=== PATIENT | male | born 1935 | race Caucasian/White ===

== ENCOUNTER 2017-11-24 12:19 | Inpatient (IN) | payer OTHER ==
[2017-11-24] MEDS ORDERED: LEVALBUTEROL 1.25 MG/3 ML NEB ONE (12:24)
[2017-11-24] MEDS ORDERED: NA CHLORIDE 0.9% 1,000 ML ONE ×2 (12:49→13:23)
[2017-11-24 13:19] LABS: Arterial Blood Carboxyhemoglob 1.5 % (0-1.5); Blood Gas Oxyhemoglobin 89.8 % (94-97); Blood O2 Saturation 91.7 % (92-98.5)
[2017-11-24 13:22] LABS: Potassium 4.2 mEq/L (3.6-5.0)
[2017-11-24 13:28] LABS: Absolute Lymphocytes (CBC) 0.4 K/uL (0.7-4.9); Absolute Monocytes 0.6 K/uL (0.1-1.3); Absolute Neutrophil 4.7 K/uL (1.8-8.0); Basophils % 0.2 % (0-1.3); Hematocrit 35.7 % (39.6-49.0); Lymphocytes % 6.7 % (15.3-44.8); MCH 26.2 pg (27.0-35.0); MPV 8.3 fL (7.6-11.3); Monocytes % 9.9 % (3.3-12.3); RBC Red Blood Cell Count 4.41 M/uL (4.33-5.43)
--- NOTE | 2017-11-24 13:34 | RAD REPORT ---
EXAM DESCRIPTION: RAD - Chest Single View - 11/24/2017 1:25 pm CLINICAL HISTORY: Cough COMPARISON: 08/03/2017 FINDINGS: Portable technique limits examination quality. Large airspace consolidation is seen in the right lower lobe. Small to moderate area of airspace cons olidation is seen in the right upper lobe. The left lung is hyperexpanded and emphysematous. The hear t is normal in size. No displaced fractures. IMPRESSION: Extensive right-sided pneumonia.
[2017-11-24] MEDS ORDERED: VANCOMYCIN/NS 1 gm 1 GM/250 ML BAG ONE (14:53)
[2017-11-24] MEDS ORDERED: Meropenem 1,000 MG in NA CHLORIDE 0.9% 100 ML IV ONE (15:00)
[2017-11-24] MEDS ORDERED: NOREPINEPHRINE 4mg/D5W 250mL 4 MG/250 ML BAG IV ONE (16:23)
[2017-11-24] MEDS ORDERED: NOREPINEPHRINE 4 MG in D5W 250 ML IV PRN (16:26)
--- NOTE | 2017-11-24 16:27 | EKG ---
Test Date: 2017-11-24 Test Time: 14:59:08 Hot Blaster: SARA MEASUREMENT RESULTS: Intervals: Rate: 102 CO: 160 QRSD: 138 QT: 392 QTc: 510 [place]: P: 69 CO: 160 QRS: -77 T: 36 INTERPRETIVE STATEMENTS: Sinus tachycardia Left axis deviation Right bundle branch block Inferior infarct, age undetermined Abnormal ECG Compared to ECG 08/03/2017 23:51:38 Left-axis deviation now present Atrial abnormality no longer present Myocardial infarct finding still present Electronically Signed On 11-24-17 16:26:52 CDT by Cali Jarvis
--- NOTE | 2017-11-24 16:54 | ER ---
Nurse's Notes [facility] Name: Shaji Gómez Age: 82 yrs Sex: Male : 1935 Arrival Date: 11/24/2017 Time: 12:22 Bed 3 Private MD: Diagnosis: Pneumonia;Hypoxemia;Sepsis;Hypotension Presentation: 11/24 12:20 Presenting complaint: EMS states: pt was at Dr. Holt's office for weakness and iw difficulty breathing, pt was unable to ambulate, was 73% on RA, placed la 6L NC up to 80 %, EMS gave neb, SPO2 up to 86%, also has had cough and congestion X 3 days, was hypotensive at 80/40 on scene. Transition of care: patient was not received from another setting of care. Onset of symptoms was November 24, 2017. Care prior to arrival: Medication(s) given: Albuterol Neb x 1, Atrovent Neb x 1, IV initiated. 18 GA, in the right antecubital area, Glucose check: 120 Med neb given. Oxygen administered. via a nebulizer mask. 12:20 Method Of Arrival: EMS: [facility] iw 12:20 Acuity: JAIR 2 iw Historical: - Allergies: 12:35 perfume; iw - PMHx: 12:35 AAA; Cancer; COPD; CAD; Emphysema; GERD; Myocardial infarction; Pancreatitis; ADD/ADHD; iw - PSHx: 12:35 Aortic stent; Heart stents; iw - Immunization history:: Adult Immunizations unknown. - Family history:: not pertinent. - Social history:: Smoking status: unknown. - Hospitalizations: : No recent hospitalization is reported. Screenin:45 Abuse screen: Denies threats or abuse. Denies injuries from another. Nutritional sg screening: No deficits noted. Tuberculosis screening: No symptoms or risk factors identified. Never had TB. Fall Risk None identified. Assessment: 12:40 Reassessment: ERP notified of BP=68/50, verbal order given for 2nd liter NS bolus, iw started to RAC, pt remains on BiPAP, tolerating well. 12:45 General: Appears in no apparent distress. comfortable, well groomed, well developed, sg well nourished, Behavior is calm, cooperative, appropriate for age. Pain: Denies pain. Neuro: Level of Consciousness is awake, alert, obeys commands, Oriented to person, place, time, Moves all extremities. Speech is normal, Facial symmetry appears normal. Cardiovascular: Heart tones S1 S2 present Capillary refill is brisk in bilateral fingers Patient's skin is warm and dry. Chest pain is denied. Cardiovascular: Rhythm is sinus tachycardia. Respiratory: Airway is patent Respiratory effort is even, labored, shallow, Respiratory pattern is symmetrical, tachypnea. Respiratory: Reports shortness of breath at rest on exertion Breath sounds are diminished in right lower lobe, left posterior lower lobe and right posterior middle lobe the patient has moderate shortness of breath. GI: Abdomen is round non-distended, mass like area noted to abd, pt reports history of AAA and Hernia Bowel sounds present X 4 quads. : No signs and/or symptoms were reported regarding the genitourinary system. EENT: No deficits noted. Derm: Skin is pink, warm \T\ dry. Musculoskeletal: No signs and/or symptoms reported regarding the musculoskeletal system. 13:30 Reassessment: Patient appears in no apparent distress at this time. Patient and/or sg family updated on plan of care and expected duration. Pain level reassessed. Patient is alert, oriented x 3, equal unlabored respirations, skin warm/dry/pink. pt tolerating BiPap well at this time, pt family remains at bedside, pt remains on monitors, srx2, bed in low and locked position, bed remains in trendelenberg d/t hypotension, pt given more warm blankets at this time. 15:50 Reassessment: Patient appears in no apparent distress at this time. Patient and/or sg family updated on plan of care and expected duration. Pain level reassessed. Patient is alert, oriented x 3, equal unlabored respirations, skin warm/dry/pink. time out performed, prior to procedure. 15:55 Reassessment: Sonia ERP BUSINESS ANALYST at bedside for insertion of central line to left femoral. sg 16:51 Reassessment: Patient appears in no apparent distress at this time. Patient is alert, sg oriented x 3, equal unlabored respirations, skin warm/dry/pink. Respiratory: Airway is patent Respiratory effort is even, unlabored, Respiratory pattern is tachypnea Breath sounds are coarse Breath sounds are diminished the patient has mild shortness of breath. Respiratory: Sputum is thick, green purulent. Derm: Skin is pink, warm \T\ dry. 17:17 Reassessment: Patient appears in no apparent distress at this time. pt laying left side sg lying position, eyes closed, resp even and unlabored, pt remains on BiPap at this time, pt awakens easily to verbal stimuli, srx2. 17:30 Reassessment: Patient appears in no apparent distress at this time. Patient and/or sg family updated on plan of care and expected duration. Pain level reassessed. notified of pt VS, and pt status, orders to increase the rate of the norepi to 15 mcg/min Patient states symptoms have not improved. Vital Signs: 12:34 BP 71 / 48; Pulse 111; Resp 26 S; Pulse Ox 93% on BiPAP; Pain 0/10; iw 12:34 Temp 97.4; sg 13:11 BP 84 / 53; Pulse 109; Resp 21 S; Pulse Ox 96% on 40% BiPAP; sg 15:55 BP 73 / 55; Pulse 99 MON; Resp 20 S; Pulse Ox 98% on 75% BiPAP; sg 16:33 BP 104 / 63; Pulse 102 MON; Resp 20 S; Pulse Ox 97% on 75% BiPAP; sg 17:00 BP 83 / 53; Pulse 108; Resp 21 S; Pulse Ox 99% on 75% BiPAP; sg 17:15 BP 91 / 78; Pulse 101 MON; Resp 22 S; Pulse Ox 97% on 75% BiPAP; sg 17:30 BP 85 / 50; Pulse 99; Resp 21 S; Pulse Ox 99% on 75% BiPAP; sg 17:45 BP 101 / 58; Pulse 99 MON; Resp 16 S; Pulse Ox 99% on R/A; sg 18:00 BP 91 / 56; Pulse 99 MON; Resp 19 S; Pulse Ox 100% on 75% BiPAP; sg ED Course: 12:20 Maintain EMS IV. Dressing intact. Good blood return noted. Site clean \T\ dry. Gauge \T\ iw site: 18 RAC. 12:22 Patient arrived in ED. iw 12:23 Sudarshan Peterson MD is Attending Physician. rn 12:34 Triage completed. iw 12:40 Patient has correct armband on for positive identification. Bed in low position. Call sg light in reach. Side rails up X2. chief operating engineer on. Pulse ox on. NIBP on. Warm blanket given. Head of bed elevated. pt bed to Trendelenburg position d/t hypotension. 12:45 Initial lab(s) drawn, by ED staff, sent to lab. First set of blood cultures drawn by sg or. Inserted saline lock: 18 gauge in left forearm, using aseptic technique. Blood collected. O2 via BiPAP. 12:51 Michael Valentine, RN is Primary Nurse. sg 13:24 X-ray completed. Portable x-ray completed in exam room. Patient tolerated procedure mh1 well. 13:26 XRAY CXR (1 view) In Process Unspecified. EDMS 15:19 EKG done, by renewable energy technician. reviewed by Sudarshan Peterson MD. at1 15:50 Assisted provider with central line placement. Set up central line tray. Triple lumen sg line placed in left femoral. Line placed by Yohana SHELTON-Raj Placement verified by blood return, Dressed with Tegaderm, Blood was collected. Patient tolerated well. Before procedure, did Practitioner(s) obtain informed consent? Yes. Patient \T\ family education about procedure, CLABSI prevention and S/S of infection? Yes. Time-out/Briefing performed prior to start of procedure? Yes. Was handwashing/sanitizing done immediately prior to procedure? Yes. Was patient positioned to in a way to prevent air embolism? Yes. Was procedure site sterilized? Yes, with Provodone Iodine, physician discretion. Was the site allowed to dry? Yes. Was local anesthetic and/or sedation utilized? Yes. During the procedure, did the Practitioner(s) maintain a sterile field? Yes. Were unused ports clamped during insertion? Yes. Was a 2nd qualified MD obtained after 3 unsuccessful insertion attempts? No. Was blood aspirated from each lumen? Yes. After the procedure, did the Practitioner(s) clean the site and apply a sterile dressing? Yes. 16:30 Notified ED physician of a critical lab result(s). lactate 41.5. dm5 16:53 Leatha Holt MD is Hospitalizing Provider. rn 18:12 Patient admitted, IV remains in place. intact, No redness/swelling at site. sg 18:13 One-on-one care X 180 minutes. sg Administered Medications: 12:36 Drug: NS 0.9% 1000 ml Route: IV; Rate: 1000 ml; Site: right antecubital; iw 13:30 Follow up: Response: No adverse reaction; IV Status: Completed infusion; IV Intake: sg 990ml 12:45 Drug: Xopenex (3) 1.25 mg Route: Inhalation; sg 12:45 Drug: AtroVENT Aerosol 0.5 mg Route: Inhalation; sg 12:54 Drug: NS 0.9% 1000 ml Route: IV; Rate: 1000 ml; Site: right antecubital; iw 13:30 Follow up: Response: No adverse reaction; IV Status: Completed infusion sg 14:50 CANCELLED (Duplicate Order): Rocephin - (cefTRIAXone) 1 grams IVPB once over 30 mins; rn (mix in 50 mL NS) 14:50 CANCELLED (Duplicate Order): AZITHromycin 500 mg IVPB once over 1 hrs; (mix in 250 mL rn NS) 14:53 Drug: NS 0.9% 500 ml Route: IV; Rate: bolus; Site: left antecubital; sv 15:30 Follow up: Response: No adverse reaction; IV Status: Completed infusion; IV Intake: sg 500ml 15:00 Drug: vancoMYCIN 1 grams Route: IVPB; Infused Over: 2 hrs; Site: right antecubital; iw 16:56 Follow up: Response: No adverse reaction; IV Status: Completed infusion sg 15:19 Drug: Meropenem 1 grams Route: IV; Rate: 1 calculated rate; Site: left wrist; sv 15:30 Follow up: Response: No adverse reaction; IV Status: Completed infusion sg 16:30 Drug: Levophed (4 mg/250 mL D5W 4 mcg/min {Note: bp74/53.} Route: IV; Rate: calculated sg rate; Site: left femoral; 17:03 Follow up: Rate change 10 mcg/min sg 17:30 Follow up: Rate change 15 mcg/min sg 18:24 Follow up: Response: No adverse reaction; IV Status: Infusion continued upon admission sg 18:24 Not Given (Physician Discretion): Magnesium Sulfate 1 grams IVPB once over 1 hrs sg Intake: 13:30 IV: 990ml; Total: 990ml. sg 15:30 IV: 500ml; Total: 1490ml. sg Outcome: 16:53 Decision to Hospitalize by Provider. rn 18:25 Admitted to ICU accompanied by nurse, accompanied by tech, family with patient, via sg stretcher, room 1, with oxygen, on monitor, with chart. 18:25 Condition: stable 18:25 Instructed on the need for admit, safety practices, Demonstrated understanding of instructions. 18:42 Patient left the ED. iw Signatures: Dispatcher [employer] Chela Tabor, RN RN dm5 Lillian Mijares RN Michael Philip RN RN sg Harvey, Martha 1 Mary Lockhart RN RN iw Nieto, Roman, MD MD rn gonzales, Amanda, egg worker EKG Tat1
--- NOTE | 2017-11-24 16:54 | EDPHYS ---
Physician Documentation [facility] Name: Shaji Gómez Age: 82 yrs Sex: Male : 1935 Arrival Date: 11/24/2017 Time: 12:22 Bed 3 Private MD: ED Physician Sudarshan Peterson HPI: 11/24 16:49 This 82 yrs old Male presents to ER via EMS with complaints of Breathing rn Difficulty. 16:49 The patient has shortness of breath at rest, with light activity. Onset: The rn symptoms/episode began/occurred 1 week(s) ago. Duration: The symptoms are continuous. Severity of symptoms: At their worst the symptoms were severe in the emergency department the symptoms have improved. The patient has experienced similar episodes in the past. Sent by PCP for sob and low O2 sats, + hx of copd and recurrent pneumonia, O2 sats in 70s. Given solumedrol and breathing treatments by EMS prior to arrival.. Historical: - Allergies: 12:35 perfume; iw - PMHx: 12:35 AAA; Cancer; COPD; CAD; Emphysema; GERD; Myocardial infarction; Pancreatitis; ADD/ADHD; iw - PSHx: 12:35 Aortic stent; Heart stents; iw - Immunization history:: Adult Immunizations unknown. - Family history:: not pertinent. - Social history:: Smoking status: unknown. - Hospitalizations: : No recent hospitalization is reported. ROS: 16:49 Constitutional: Negative for fever, chills, and weight loss, Eyes: Negative for injury, rn pain, redness, and discharge, Neck: Negative for injury, pain, and swelling, Cardiovascular: Negative for chest pain, palpitations, and edema, Respiratory: + sob and cough Abdomen/GI: Negative for abdominal pain, nausea, vomiting, diarrhea, and constipation, Back: Negative for injury and pain, MS/Extremity: Negative for injury and deformity, Skin: Negative for injury, rash, and discoloration, Neuro: + weakness Exam: 16:49 Constitutional: This is a well developed, well nourished patient who is awake, alert, rn + moderate respiratory distress on facemask Head/Face: Normocephalic, atraumatic. Eyes: Pupils equal round and reactive to light, extra-ocular motions intact. Lids and lashes normal. Conjunctiva and sclera are non-icteric and not injected. Cornea within normal limits. Periorbital areas with no swelling, redness, or edema. ENT: dry MM Neck: Trachea midline, no thyromegaly or masses palpated, and no cervical lymphadenopathy. Supple, full range of motion without nuchal rigidity, or vertebral point tenderness. No Meningismus. Cardiovascular: tachycardic, regular, no murmur Respiratory: + moderate tachypnea with retractions, + coarse bilateral breath sounds, more diminished on right base. Abdomen/GI: Soft, non-tender, with normal bowel sounds. No distension or tympany. No guarding or rebound. No evidence of tenderness throughout. MS/ Extremity: Pulses equal, no cyanosis. Neurovascular intact. Full, normal range of motion. Equal circumference. Neuro: Awake and alert, GCS 15, oriented to person, place, time, and situation. Cranial nerves II-XII grossly intact. Motor strength 5/5 in all extremities. Sensory grossly intact. Cerebellar exam normal. Vital Signs: 12:34 BP 71 / 48; Pulse 111; Resp 26 S; Pulse Ox 93% on BiPAP; Pain 0/10; iw 12:34 Temp 97.4; sg 13:11 BP 84 / 53; Pulse 109; Resp 21 S; Pulse Ox 96% on 40% BiPAP; sg 15:55 BP 73 / 55; Pulse 99 MON; Resp 20 S; Pulse Ox 98% on 75% BiPAP; sg 16:33 BP 104 / 63; Pulse 102 MON; Resp 20 S; Pulse Ox 97% on 75% BiPAP; sg 17:00 BP 83 / 53; Pulse 108; Resp 21 S; Pulse Ox 99% on 75% BiPAP; sg 17:15 BP 91 / 78; Pulse 101 MON; Resp 22 S; Pulse Ox 97% on 75% BiPAP; sg 17:30 BP 85 / 50; Pulse 99; Resp 21 S; Pulse Ox 99% on 75% BiPAP; sg 17:45 BP 101 / 58; Pulse 99 MON; Resp 16 S; Pulse Ox 99% on R/A; sg 18:00 BP 91 / 56; Pulse 99 MON; Resp 19 S; Pulse Ox 100% on 75% BiPAP; sg Procedures: 16:21 Central Line: the site was prepped with in sterile fashion, a triple lumen catheter was snw inserted, in the left femoral vein, in 1 attempts. placement was verified, by blood return, the site was dressed with Tegaderm, the patient tolerated the procedure, well. MDM: 12:23 Patient medically screened. rn 16:49 Differential diagnosis: Chronic Obstructive Pulmonary Disease Myocardial Infarction rn pneumonia, Pneumothorax. Data reviewed: vital signs, nurses notes, lab test result(s), EKG, radiologic studies, plain films, and as a result, I will admit patient. Counseling: I had a detailed discussion with the patient and/or guardian regarding: the historical points, exam findings, and any diagnostic results supporting the discharge/admit diagnosis, lab results, radiology results, the need for further work-up and treatment in the hospital. Response to treatment: the patient's symptoms have mildly improved after treatment, and as a result, I will admit patient. Admission orders: after a detailed discussion of the patient's condition and case, the admit orders are written by me. ED course: Pt improved after abx, central line, and pressor, notified Dr. Holt of admission, requests meropenem and vancomycin, will admit to ICU.. 11/24 12:25 Order name: Blood Culture Adult (2) 11/24 12:25 Order name: BNP; Complete Time: 14:39 11/24 12:34 Order name: ABG; Complete Time: 14:39 11/24 12:57 Order name: Basic Metabolic Panel; Complete Time: 14:39 [facility] 11/24 12:57 Order name: Troponin (Emerg Dept Use Only); Complete Time: 14:39 [facility] 11/24 12:57 Order name: Procalcitonin; Complete Time: 16:17 [facility] 11/24 12:57 Order name: CBC with Automated Diff; Complete Time: 14:39 [facility] 11/24 13:01 Order name: Lactate; Complete Time: 14:39 11/24 16:30 Order name: Lactate Sepsis 2 HR Follow-up [facility] 11/24 12:25 Order name: XRAY CXR (1 view); Complete Time: 14:39 11/24 12:25 Order name: EKG; Complete Time: 13:01 11/24 12:25 Order name: BIPAP 11/24 16:51 Order name: Sputum Culture 11/24 18:21 Order name: Sputum Culture [facility] 11/24 12:25 Order name: Cardiac monitoring; Complete Time: 12:54 rn 11/24 12:25 Order name: EKG - Nurse/Tech; Complete Time: 15:21 rn 11/24 12:25 Order name: IV Saline Lock; Complete Time: 12:55 rn 11/24 12:25 Order name: Labs collected and sent; Complete Time: 12:55 rn 11/24 12:25 Order name: O2 Per Protocol; Complete Time: 12:55 rn 11/24 12:25 Order name: O2 Sat Monitoring; Complete Time: 12:55 rn Administered Medications: 12:36 Drug: NS 0.9% 1000 ml Route: IV; Rate: 1000 ml; Site: right antecubital; iw 13:30 Follow up: Response: No adverse reaction; IV Status: Completed infusion; IV Intake: sg 990ml 12:45 Drug: Xopenex (3) 1.25 mg Route: Inhalation; sg 12:45 Drug: AtroVENT Aerosol 0.5 mg Route: Inhalation; sg 12:54 Drug: NS 0.9% 1000 ml Route: IV; Rate: 1000 ml; Site: right antecubital; iw 13:30 Follow up: Response: No adverse reaction; IV Status: Completed infusion sg 14:50 CANCELLED (Duplicate Order): Rocephin - (cefTRIAXone) 1 grams IVPB once over 30 mins; rn (mix in 50 mL NS) 14:50 CANCELLED (Duplicate Order): AZITHromycin 500 mg IVPB once over 1 hrs; (mix in 250 mL rn NS) 14:53 Drug: NS 0.9% 500 ml Route: IV; Rate: bolus; Site: left antecubital; sv 15:30 Follow up: Response: No adverse reaction; IV Status: Completed infusion; IV Intake: sg 500ml 15:00 Drug: vancoMYCIN 1 grams Route: IVPB; Infused Over: 2 hrs; Site: right antecubital; iw 16:56 Follow up: Response: No adverse reaction; IV Status: Completed infusion sg 15:19 Drug: Meropenem 1 grams Route: IV; Rate: 1 calculated rate; Site: left wrist; sv 15:30 Follow up: Response: No adverse reaction; IV Status: Completed infusion sg 16:30 Drug: Levophed (4 mg/250 mL D5W 4 mcg/min {Note: bp74/53.} Route: IV; Rate: calculated sg rate; Site: left femoral; 17:03 Follow up: Rate change 10 mcg/min sg 17:30 Follow up: Rate change 15 mcg/min sg 18:24 Follow up: Response: No adverse reaction; IV Status: Infusion continued upon admission sg 18:24 Not Given (Physician Discretion): Magnesium Sulfate 1 grams IVPB once over 1 hrs sg Disposition: 16:53 Critical Care:. rn 21:49 Co-signature as Attending Physician, Sudarshan Peterson MD. rn Disposition: 18 16:53 Hospitalization ordered by Leatha Holt for Inpatient Admission. Preliminary diagnosis are Pneumonia, Hypoxemia, Sepsis, Hypotension. - Bed requested for Intensive Care Unit. - Status is Inpatient Admission. iw - Condition is Fair. - Problem is new. - Symptoms have improved. UTI on Admission? No Critical care time excluding procedures: 16:53 Critical care time: Bedside Care: 25 minutes, Consultation: 5 minutes, Family rn Intervention: 5 minutes. Total time: 35 minutes Signatures: Dispatcher [employer] EDMS Maria De Jesus Murillo Stephanie, RN RN sv Gay, Steven, RN RN sg Yohana Padgett, ELEVATOR CONSTRUCTOR HELPER-C ELEVATOR CONSTRUCTOR HELPER-Csnw Mary Lockhart RN RN iw Nieto, Roman, MD MD corn lab technician: (The following items were deleted from the chart) 14:19 12:57 BNP B-Type Natriuretic Peptide ordered. EDMS EDMS 14:19 13:01 BASIC METABOLIC PANEL+C.LAB.BRZ ordered. EDMS EDMS 14:19 13:01 TROPONIN (EMERG DEPT USE ONLY)+C.LAB.BRZ ordered. EDMS EDMS 14:50 14:40 Rocephin - (cefTRIAXone) 1 grams IVPB once over 30 mins; (mix in 50 mL NS) rn ordered. rn 14:50 14:40 AZITHromycin 500 mg IVPB once over 1 hrs; (mix in 250 mL NS) ordered. rn rn 16:28 13:01 Procalcitonin+C.LAB.BRZ ordered. EDMS EDMS 16:38 13:01 CBC+H.LAB.BRZ ordered. EDMS EDMS
[2017-11-24] MEDS ORDERED: ONDANSETRON 4 MG/2 ML VIAL IV PRN (18:19)
[2017-11-24] MEDS ORDERED: IPRATROPIUM BROM 0.5MG/2.5ML NEB PRN (18:19)
[2017-11-24] MEDS ORDERED: ENOXAPARIN 30 MG/0.3 ML SQ ONE (21:51)
[2017-11-24] MEDS ORDERED: FUROSEMIDE 40 MG/4 ML VIAL IV ONE (22:34)
[2017-11-24] MEDS: NOREPINEPHRINE 4 MG in D5W 250 ML IV PRN (22:54)
[2017-11-24] MEDS: METHYLPREDNISOLONE 125 MG INJ IV SCH (22:55)
[2017-11-25] MEDS ORDERED: Meropenem 1000 MG/VIAL IV SCH (04:00)
[2017-11-25 06:25] LABS: Absolute Lymphocytes (CBC) 0.2 K/uL (0.7-4.9); Absolute Monocytes 0.7 K/uL (0.1-1.3); Absolute Neutrophil 12.7 K/uL (1.8-8.0); Basophils % 0.1 % (0-1.3); Hematocrit 35.1 % (39.6-49.0); Lymphocytes % 1.8 % (15.3-44.8); MCH 26.4 pg (27.0-35.0); MPV 8.2 fL (7.6-11.3); Monocytes % 5.1 % (3.3-12.3); RBC Red Blood Cell Count 4.34 M/uL (4.33-5.43)
[2017-11-25] MEDS: NOREPINEPHRINE 4 MG in D5W 250 ML IV PRN ×2 (06:39→20:33)
[2017-11-25] MEDS: METHYLPREDNISOLONE 125 MG INJ IV SCH ×3 (06:44→17:17)
[2017-11-25 06:45] LABS: Potassium 5.7 mEq/L (3.6-5.0)
[2017-11-25] MEDS ORDERED: NA CHLORIDE 0.9% 250 ML IV ONE (07:17)
[2017-11-25] MEDS ORDERED: Meropenem 1,000 MG in NA CHLORIDE 0.9% 100 ML IV SCH (07:30)
[2017-11-25 07:39] LABS: Potassium 5.9 mEq/L (3.6-5.0)
[2017-11-25] MEDS ORDERED: SOD POLYSTYREN SUL 15 GM/60 ML UCUP PO ONE (07:58)
[2017-11-25] MEDS ORDERED: CALCIUM GLUC 10% INJ 4.65 MEQ in NA CHLORIDE 0.9% 100 ML IV ONE (08:01)
[2017-11-25] MEDS ORDERED: GLUCAGON 1 MG/VIAL IM PRN (08:05)
[2017-11-25] MEDS ORDERED: D50W 25 GM/50 ML SYRINGE IV ONE (08:05)
[2017-11-25] MEDS ORDERED: D50W 25 GM/50 ML SYRINGE IV PRN (08:05)
[2017-11-25] MEDS ORDERED: INSULIN -REGULAR HUMAN 50 UNIT/0.5 ML ML IV ONE (08:06)
[2017-11-25] MEDS: NA CHLORIDE 0.9% 1,000 ML IV SCH ×2 (08:11→21:20)
--- NOTE | 2017-11-25 08:22 | HP ---
Date of Admission: 11/24/2017 Chief Complaint: Shortness of breath, fever, confusion. History Of Present Illness: This is an 82-year-old male patient with history of lung cancer, COPD, came into office with above-mentioned complaints. The patient's called this morning around 8 o'clock at the office and she was concerned about the patient not doing well and she was advised to bring patient to the office right away. The patient did not come to office until almost 11 o' clock and soon after he came into the office, he was evaluated. He actually was extremely weak that he was in the wheelchair he had hard time coming out of the car to come in the office, so he was brought in by and office staff in wheelchair and as soon as he came in, we evaluated. His oxygen saturation was 73%-76% on 5 L oxygen and he appeared very weak and confused. reported that last 3 to 4 days, he is having increasing problem with cough, congestion, some shortness of breath, wheezing and today he was noted to be confused with some fever. He is coughing up some colored mucus, yellowish colored in nature. After he was evaluated, we immediately decided to call ambulance and 911 was called. EMS arrived and the patient was transported to the emergency room. After his evaluation in the emergency room, he was admitted to the hospital to intensive care unit. He has received about 2 to 2.5 L of fluid in the emergency room and BiPAP therapy, oxygen nebulizer treatment, steroids, and antibiotics were started. Allergies: NO KNOWN ALLERGIES. Medications: According to office list, he takes Advair 250/50 one puff twice a day, aspirin 325 mg daily, Flomax 0.4 mg daily, gabapentin 100 mg 3 times a day , meloxicam 7.5 mg daily, omeprazole 20 mg daily, ProAir inhaler p.r.n., Spiriva inhaler 1 puff daily, tramadol p.r.n., Tylenol p.r.n. Review of Systems: Constitutional: As mentioned above. 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 Respiratory: As mentioned above. All other systems reviewed and negative. Past Surgical History: Significant for coronary artery angioplasty with stent placement, endovascular stent for abdominal aortic aneurysm in 2002, and surgery for prostate. Family History: Mother had stroke. Social History: Prior history of smoking, not at present time. Use of alcohol negative. Past Medical History: Significant for abdominal aortic aneurysm, lung cancer, gastroesophageal reflux disease, mixed hyperlipidemia, hypertension, benign prostatic hypertrophy, COPD, diverticulosis, coronary artery disease. Physical Examination: Vital Signs: At office, blood pressure 85/52, pulse 120, respiratory rate 18, temperature 97.9, oxygen saturation 73%. General: The patient appears very weak, confused, not in any distress. HEENT: Head atraumatic, normocephalic. Conjunctivae nonerythematous. Sclerae white. Mouth, no thrush or edema noted. Ears/Nose, no mass, lesion, discharge noted. Neck: Supple. No JVD, lymph nodes, bruit, thyromegaly noted. Lungs: Bilateral diminished air entry in both lung burris, shallow breathing. Heart: Normal heart sounds, no murmur or gallop. Abdomen: Soft, bowel sounds normal. No guarding, rigidity, tenderness, mass, hepatosplenomegaly, distention, or bruit noted. Extremities: No leg edema. No calf tenderness. Skin: No rash, ulcer, cellulitis. Lymphatics: No lymph node enlargement in neck, supraclavicular, infraclavicular region. Neuro: The patient appears very weak and confused, generalized weakness. Chest: Unremarkable. External Genitalia: Deferred. Rectal: Deferred. Laboratory Data: White count 5.6, hemoglobin 11.5, platelets 241. Blood gas; pH 7.24, pCO2 50.6, pO2 75.4, saturation 91% on 100% FiO2. Sodium 137, potassium 4.2, chloride 105, bicarb 23, BUN 30, creatinine 2.20, glucose 106. BNP 249. The patient's last creatinine on August 05, 2017 was 1.00. Troponin 0.08. Chest x-ray; extensive right-sided pneumonia. Impression: 1. Acute respiratory failure. 2. Pneumonia. 3. Acute kidney injury. 4. Volume depletion. 5. Anemia. 6. Lung cancer. 7. Acute exacerbation of chronic obstructive pulmonary disease. 8. Abdominal aortic aneurysm. 9. Hypertension. 10. Mixed hyperlipidemia. 11. Diverticulosis. 12. Coronary artery disease. 13. Gastroesophageal reflux disease. 14. Rule out sepsis. Plan: Admit the patient to hospital for further evaluation and management of this problem. The patient is appropriate for inpatient and is expected to spend 2 midnights in the hospital. He will be admitted to intensive care unit. IV fluid, about 2.5 L of IV fluid was given in the emergency room. We will continue IV fluid. Vasopressor medication was started, we will continue that. DVT prophylaxis will be given using Lovenox. We will start him on vancomycin and meropenem. Oxygen nebulizer treatment will be given. GI prophylaxis will be given per order. I will see him tomorrow for followup. Overall, prognosis is guarded. I did talk to patient and his today at office before they left to go to the emergency room about advance directive, and per my discussion with them, the patient remains full code. LORI/MODL Voice ID: [id number]
[2017-11-25] MEDS ORDERED: Meropenem 500 MG VIAL IV SCH (09:00)
[2017-11-25] MEDS ORDERED: THIAMINE 200 MG/2 ML INJ IVP ONE (09:04)
[2017-11-25] MEDS ORDERED: RSI MEDICATION KIT IV ONE (09:15)
[2017-11-25] MEDS: NA CHLORIDE 0.9% 250 ML IV PRN ×8 (09:20→16:00)
[2017-11-25] MEDS ORDERED: PROPOFOL 1,000 MG/100 ML VIAL IV ONE (09:28)
[2017-11-25 09:58] LABS: Arterial Blood Carboxyhemoglob 1.2 % (0-1.5); Blood Gas Oxyhemoglobin 90.8 % (94-97); Blood O2 Saturation 93.6 % (92-98.5)
[2017-11-25] MEDS ORDERED: HALOPERIDOL LACT 5 MG/ML INJ IV PRN (10:06)
[2017-11-25] MEDS: LORazepam 2 MG/ML VIAL IV PRN ×2 (10:20→15:20)
--- NOTE | 2017-11-25 10:27 | RAD REPORT ---
EXAM DESCRIPTION: RAD - Chest Single View - 11/25/2017 10:11 am CLINICAL HISTORY: Intubation, respiratory distress COMPARISON: November 24 TECHNIQUE: AP portable chest image was obtained 1001 hour . FINDINGS: Endotracheal tube has been placed. Tip is not optimally visualized due to motion. This bridger ears be 1 centimeter above the aylin. Right hemithorax volume reduction is noted. There is extensive opacification in the right upper lobe and in the right lung base. Density of opacification has incre ased. Hyper expanded left hemithorax shows no new or progressive finding. Heart size is upper normal. Right heart border is obscured. No pneumothorax. No gross bony abnormality seen. No acute aortic fin dings suspected. IMPRESSION: Endotracheal tube placement with the tip 1 centimeter above the aylin. Worsening opacification in volume reduction of the right hemithorax.
[2017-11-25 10:28] LABS: Protime INR 1.61
[2017-11-25 11:34] LABS: Albumin 2.8 g/dL (3.2-5.5); Bilirubin Total 0.9 mg/dL (0.3-1.2); Potassium 5.2 mEq/L (3.6-5.0); Protein, Total 6.1 g/dL (6.0-8.3)
[2017-11-25] MEDS: MIDAZOLAM HCL 2 MG/2 ML INJ IV PRN ×3 (11:45→19:54)
[2017-11-25] MEDS: HEPARIN/D5W 25,000 UNIT/500 ML BAG IV PRN (11:51)
[2017-11-25] MEDS: VANCOMYCIN 1.5 GM in NA CHLORIDE 0.9% 500 ML IV SCH ×2 (13:21→14:37)
[2017-11-25] MEDS ORDERED: SUCCINYLCHOLINE 20 MG/ML (10 ML) IV ONE (13:27)
[2017-11-25] MEDS ORDERED: VECURONIUM 10 MG/VIAL IV ONE (13:27)
[2017-11-25] MEDS ORDERED: WATER FOR INJ,STERILE 10 ML IV ONE (13:27)
[2017-11-25] MEDS: FENTANYL CITR 100 MCG/2 ML IV PRN (13:50)
[2017-11-25 14:53] LABS: Arterial Blood Carboxyhemoglob 1.1 % (0-1.5); Blood Gas Oxyhemoglobin 86.3 % (94-97); Blood O2 Saturation 88.8 % (92-98.5)
--- NOTE | 2017-11-25 15:00 | RAD REPORT ---
EXAM DESCRIPTION: US - Chest - 11/25/2017 1:57 pm CLINICAL HISTORY: Abnormal chest film, possible loculated or free pleural effusion COMPARISON: Portable chest November 25 FINDINGS: Sonographic evaluation of the posterior right chest was performed from apex to lung base. In the upper half of the chest posterolateral margin there is a 4.8 centimeter elliptically shaped lo culated fluid collection. No other definable fluid collections seen on this examination. IMPRESSION: Right chest sonography demonstrated a 4.8 centimeter elliptically shaped fluid collectio n posterolateral upper right chest. No other definable fluid collection.
--- NOTE | 2017-11-25 16:50 | P.CNS ---
Date of Consult: 11/25/17 Chief Complaint: Shock respiratory failure pleural effusion History of Present Illness: Patient is 82 years of age admitted with hypoxemia this morning when I came to round on a me was agitated on a BiPAP very hypoxic he was then intubated patient was hypotensive is currently on a Levophed drip has been weaned down to 6 mcg receiving IV fluid boluses on broad-spectrum antibiotics was also started on a heparin in addition is chest x-ray shows a significant worsening with an effusion on the right side ultrasound of the chest possible loculation he has had surgery before on the right side for lung cancer Allergies perfume Allergy (Verified 08/04/17 04:30) Unknown Home Medications: Aspirin [Low Dose Aspirin EC] 81 mg PO DAILY 11/28/13 Tramadol HCl [Ultram] 50 mg PO Q4HP PRN 11/28/13 Albuterol Sulfate [Proair Hfa] 2 puff IH Q4HP PRN 07/18/15 Fluticasone/Vilanterol [Breo Ellipta 100-25 Mcg INH] 1 puff IH DAILY 10/29/15 Gabapentin [Neurontin*] 300 mg PO DAILY 10/29/15 Fluticasone/Salmeterol [Advair 250/50 Diskus*] 1 puff IH BID 03/05/17 Omeprazole 20 mg PO DAILY 03/05/17 Levofloxacin [Levaquin] 500 mg PO DAILY #7 tab 08/06/17 Prednisone [Deltasone*] 10 mg PO SEECOM #14 tab 08/06/17 - Past Medical/Surgical History Diabetic: No -: Lung Cancer 2006 -: Macular Degeneration -: copd -: gerd -: [place] -: hx of AAA stent 15 years ago -: Pt does not remember last colonoscopy date. -: heart stent -: Aorta stent - Family History Mother Medical History: Stroke Father Notes: etoh abuse - Social History Smoking Status: Unknown if ever smoked Alcohol use: No CD- Drugs: No Caffeine use: Yes Place of Residence: Home Review of Systems is unable to be obtained Physical Examination Temp Pulse Resp BP Pulse Ox 98.0 F 160 H 19 101/60 92 11/25/17 04:00 11/25/17 14:30 11/25/17 14:30 11/25/17 14:30 11/25/17 14:30 General: Other (Patient on a ventilator) Neck: Supple Respiratory: Diminished (Diminished air entry on the right side with some crackles), Crackles/rales Cardiovascular: No edema, Normal S1 S2 Gastrointestinal: Normal bowel sounds, Soft and benign - Problems (1) Shock Current Visit: Yes Status: Acute Plan: Patient is currently in shock is on Levophed drip getting IV fluid boluses on broad-spectrum antibiotic potential diagnosis includes thromboembolism he is at high risk of started him on IV heparin chest x-ray shows significant opacification on the right side ultrasound possible loculation I have arranged for him to have a CT scan done of the chest patient's renal function has significantly worsened since July last year labs reviewed if patient has a loculated effusion then will refer him to thoracic surgery patient has been on stable since this morning to have a CT scan done due to her arrhythmia and hypotension he is more stable now also have difficulty inserting the top off patient is not tolerate PEEP is currently on vancomycin and meropenem also ordered an echocardiogram Critical Care: Yes Time Spent Managing Pts care (In Minutes): 60
[2017-11-25] MEDS: HEPARIN 10,000 UNIT/10 ML VIAL IV PRN ×2 (16:53→22:21)
[2017-11-25] MEDS ORDERED: ENOXAPARIN 30 MG/0.3 ML SQ SCH (17:00)
[2017-11-25] MEDS: IPRATROPIUM BROM 0.5MG/2.5ML NEB SCH (19:14)
[2017-11-25] MEDS: Meropenem 500 MG in NA CHLORIDE 0.9% 100 ML IV SCH (20:33)
--- NOTE | 2017-11-25 22:11 | EKG ---
Test Date: 2017-11-25 Test Time: 13:35:07 Formulator Compounder: SARA MEASUREMENT RESULTS: Intervals: Rate: 160 NE: 120 QRSD: 128 QT: 300 QTc: 489 [place]: P: NE: 120 QRS: 268 T: 59 INTERPRETIVE STATEMENTS: Sinus tachycardia Right bundle branch block Possible Lateral infarct, age undetermined Inferior infarct, age undetermined Abnormal ECG Compared to ECG 11/24/2017 14:59:08 Left-axis deviation no longer present Myocardial infarct finding still present Electronically Signed On 11-25-17 22:10:35 CDT by Cali Jarvis
[2017-11-26] MEDS: METHYLPREDNISOLONE 125 MG INJ IV SCH ×2 (00:50→05:32)
[2017-11-26] MEDS: HEPARIN/D5W 25,000 UNIT/500 ML BAG IV PRN (00:51)
--- NOTE | 2017-11-26 00:52 | PN ---
Date of Progress Note: 11/25/2017 Subjective: The patient was seen this morning for followup. He was lying in bed in ICU on BiPAP. O verall, he looks better today than yesterday. Denied any new complaints. This morning, when I saw h im, he was on Levophed drip at 6 mcg dose and his systolic blood pressure was 98, heart rate was arou nd 120, sinus tachycardia. Objective: Vital Signs: Reviewed. HEENT: Unremarkable. Lungs: Bilateral good equal entry. Presence of some rales in the right lung burris. Heart: Sounds normal. Abdomen: Soft. Bowel sounds normal. No guarding, rigidity, tenderness, or distention. Extremities: No leg edema. Laboratory Data: White count 13.6, hemoglobin 11.4, platelets 295. Initial sodium this morning 136, potassium 5.7, BUN 39, creatinine 2.84, bicarb 20, glucose 113. Repeat Chem-7, 134, potassium 5.9, chloride 104, bicarb 21, BUN 40, creatinine 3.04, glucose 114. Impression: 1.Pneumonia. 2.Acute respiratory failure. 3.Acute exacerbation of chronic obstructive pulmonary disease. 4.Hyperkalemia. 5.Acute kidney injury. 6.Sepsis. Plan: We will continue meropenem and vancomycin and meropenem dose was adjusted according to impaire d renal function. IV fluid bolus 250 cc was ordered this morning when I saw him. We will continue o xygen nebulizer treatment, IV Protonix. IV Solu-Medrol will be continued. We will also continue DVT prophylaxis with Lovenox. After I saw him, Dr. Oates saw him from Pulmonary and at that time, e patient's respiratory status was deteriorating and he recommended intubation. The patient is full code as per my discussion with the patient's yesterday at the office, so Dr. Oates did intuba te him and the patient was placed on ventilator. This afternoon, he had episode of supraventricular tachycardia with heart rate around 160. Hemodynamically, he was stable and subsequently he was back in sinus rhythm. His repeat potassium was 5.3 this afternoon and this was after I gave him D50 IV wi th 10 units of regular insulin IV this morning and calcium gluconate and Kayexalate for treatment of hyperkalemia. Overall, prognosis is guarded. I will see him tomorrow for followup. LORI/MODL Voice ID: [id number] Report ID: [id number]
[2017-11-26] MEDS: ALBUTEROL 2.5 MG/3 ML NEB SOL NEB PRN ×2 (01:57→19:50)
[2017-11-26] MEDS: IPRATROPIUM BROM 0.5MG/2.5ML NEB SCH ×4 (01:57→19:50)
[2017-11-26] MEDS: NA CHLORIDE 0.9% 1,000 ML IV SCH ×3 (02:17→15:30)
[2017-11-26] MEDS: FENTANYL CITR 100 MCG/2 ML IV PRN (05:33)
[2017-11-26 07:07] LABS: Albumin 2.6 g/dL (3.2-5.5); Bilirubin Total 0.8 mg/dL (0.3-1.2); Potassium 4.9 mEq/L (3.6-5.0); Protein, Total 6.2 g/dL (6.0-8.3)
[2017-11-26 07:09] LABS: Hematocrit 30.8 % (39.6-49.0); MCH 26.3 pg (27.0-35.0); MCV 81.2 fL (80-100); MPV 8.3 fL (7.6-11.3); RBC Red Blood Cell Count 3.79 M/uL (4.33-5.43)
[2017-11-26] MEDS: HEPARIN 10,000 UNIT/10 ML VIAL IV PRN (07:30)
--- NOTE | 2017-11-26 08:26 | P.PN ---
Subjective Date of Service: 11/26/17 Chief Complaint: Shock respiratory failure pleural effusion Subjective: Improving (Patient is off vasopressors is on IV propofol no the change) Review of Systems is unable to be obtained Physical Examination - Vital Signs Temperature: 97.8 F Blood Pressure: 88/53 Pulse: 101 Respirations: 16 Pulse Ox (%): 95 - Physical Exam General: Unresponsive Respiratory: Clear to auscultation bilaterally, Diminished (Diminished on the right side with some crackles) Cardiovascular: No edema, Regular rate/rhythm, Normal S1 S2 Gastrointestinal: Normal bowel sounds, Soft and benign Assessment & Plan - Problems (Diagnosis) (1) Shock Current Visit: Yes Status: Acute Plan: Patient shock has resolved his off vasopressors blood cultures so far negative sputum cultures pending I have ordered an echocardiogram CT chest pending naval to give contrast due to his renal insufficiency renal function is improving continue with heparin for now chest x-ray shows opacification on the right side with volume loss and presumably secondary to his resection from his lung cancer ultrasound preliminary report showed a loculated effusion then done in the CT scan if this loculated consider transfer to a tertiary care facility patient is full code start on tube feeds patient is mildly anemic
[2017-11-26] MEDS: FAMOTIDINE 20 MG/2 ML VIAL IV SCH (09:01)
[2017-11-26] MEDS: Meropenem 500 MG in NA CHLORIDE 0.9% 100 ML IV SCH ×2 (09:01→21:00)
--- NOTE | 2017-11-26 09:02 | RAD REPORT ---
EXAM DESCRIPTION: Nick Single View11/26/2017 6:05 am CLINICAL HISTORY: Shortness of breath COMPARISON: November 25 FINDINGS: Mild improvement in the right lung opacities has occurred. Right lung volume loss is unch anged. The left lung appears clear of acute infiltrate. It is hyperexpanded. An endotracheal tube has its tip couple centimeters above the aylin. The heart is borderline enlarge d IMPRESSION: Mild improvement in right lung opacities. Right volume loss is unchanged
[2017-11-26] MEDS: PROPOFOL 1,000 MG/100 ML VIAL IV PRN (09:12)
--- NOTE | 2017-11-26 09:32 | RAD REPORT ---
EXAM DESCRIPTION: VASExtrem Venous W Compress Bil11/26/2017 8:18 am CLINICAL HISTORY: Bilateral leg swelling COMPARISON: August 2017 FINDINGS: The common femoral, superficial femoral, popliteal and posterior tibial veins bilaterally are compressible and demonstrate augmentation. Doppler demonstrates good flow. IMPRESSION: No evidence of deep venous thrombosis involving either lower extremity.
--- NOTE | 2017-11-26 10:21 | RAD REPORT ---
EXAM DESCRIPTION: CT - Thorax Wo Con - 11/26/2017 8:28 am CLINICAL HISTORY: Lung cancer/shortness of breath. COMPARISON: Ultrasound November 25, [address] chest July 2017. TECHNIQUE: Computed axial tomography of the chest was obtained. IV contrast was not requested. FINDINGS: The evaluation of mediastinum, elizabeth and vessels is limited secondary to lack of contrast a dministration. An endotracheal tube has its tip a couple cm above the aylin. A loculated pleural effusion within an d the anterolateral right hemithorax measures approximately 13 x 1.5 cm. It does not contain air. Opacities within the medial right hemithorax has the appearance of post treatment fibrosis. There are additional alveolar opacities within the right lung. Right lung volume loss is present. Increased de nsity is present within the right lower lobe bronchi probably representing mucous. Coronary arterial calcifications are noted. The left lung is hyperaerated and clear. Centrilobular em physema is noted. IMPRESSION: 1. Small loculated right pleural effusion. 2. Debris within the right lower lobe having the appearance of mucus. There is right lower lobe atele ctasis. 3. Right lung opacities likely represent a combination of post treatment fibrosis and perhaps postobs tructive pneumonitis or pneumonia.
[2017-11-26] MEDS: ENOXAPARIN 100 MG/ML SYR SQ SCH (11:13)
--- NOTE | 2017-11-26 12:18 | ECHO ---
HEIGHT: 5 ft 11 in WEIGHT: 194 lb 3.2 oz DATE OF STUDY: 11/26/[address]: Hasmukh Oates MD 2-DIMENSIONAL: YES M.MODE: YES DOPPLER: YES COLOR FLOW: YES TDS: NO PORTABLE: YES DEFINITY: NO BUBBLE STUDY: NO DIAGNOSIS: RESPIRATORY FAILURE AND SHOCK CARDIAC HISTORY: CATHERIZATION: SURGERY: PROSTHETIC VALVE: PACEMAKER: MEASUREMENTS (cm) DIASTOLIC (NORMALS) SYSTOLIC (NORMALS) IVSd 1.2 (0.6-1.2) LA Diam (1.9-4.0) LVEF 48% LVIDd 5.3 (3.5-5.7) LVIDs 4.0 (2.0-3.5) %FS 24% LVPWd 1.2 (0.6-1.2) Ao Diam 3.1 (2.0-3.7) 2 DIMENSIONAL ASSESSMENT: RIGHT ATRIUM: NORMAL LEFT ATRIUM: NORMAL RIGHT VENTRICLE: NORMAL LEFT VENTRICLE: NORMAL SIZE TRICUSPID VALVE: NORMAL MITRAL VALVE: MITRAL ANNULAR CALCIFICATION PULMONIC VALVE: NORMAL AORTIC VALVE: SCLEROSIS PERICARDIAL EFFUSION: NONE AORTIC ROOT: NORMAL LEFT VENTRICULAR WALL MOTION: MILD GLOBAL HYPOKINESIS. DOPPLER/COLOR FLOW: MILD TRICUSPID REGURGITATION. RIGHT VENTRICULAR SYSTOLIC PRESSURE 48mmHg. 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 RIGHT VENTRICULAR SYSTOLIC PRESSURE 48mmHg. MILD GLOBAL HYPOKINESIS. LEFT VENTRICULAR EJECTION FRACTION 48%. AORTIC SCLEROSIS WITH NO STENOSIS. TECHNOLOGIST: Zen WOODALL
[2017-11-26] MEDS ORDERED: IPRATROPIUM BROM 0.5MG/2.5ML NEB SCH (14:00)
[2017-11-26] MEDS: VITAL AF 1,000 ML BOT RTH SCH (15:21)
[2017-11-26] MEDS: METHYLPREDNISOLONE 40 MG INJ IV SCH (16:53)
[2017-11-26] MEDS: ARFORMOTEROL TARTRATE 15 MCG/2 ML VIAL.NEB NEB SCH (19:50)
[2017-11-27] MEDS: PROPOFOL 1,000 MG/100 ML VIAL IV PRN ×2 (01:41→09:04)
[2017-11-27] MEDS: METHYLPREDNISOLONE 40 MG INJ IV SCH ×3 (01:43→17:33)
--- NOTE | 2017-11-27 02:05 | PN ---
Date of Progress Note: 11/26/2017 Subjective: The patient was seen this morning for followup. He was lying in bed, on ventilator, on propofol drip. Intake and output records reviewed. The patient was extremely agitated, and last nig ht, he was started on propofol drip, and after he was on propofol drip, we were able to discontinue h is Levophed drip, and this morning, his vital signs were stable when I saw him. Objective: HEENT: Examination unremarkable. LUNGS: Bilateral good equal entry except diminished air entry in the right lower lung burris. HEART: Sounds normal. ABDOMEN: Soft, bowel sounds normal. No guarding, rigidity, tenderness, or distention. EXTREMITIES: No leg edema. Laboratory Data: White count 8.5, hemoglobin 10, and platelet count 179. Sodium 135, potassium 4.9, chloride 109, bicarb 20, BUN 55, creatinine 2.42, and glucose 130. Diagnostic Data: CAT scan of the chest done without contrast today showing pneumonia, blood culture growing gram-negative rods. Impression: 1.Sepsis. 2.Pneumonia. 3.Acute respiratory failure. 4.Acute exacerbation of chronic obstructive pulmonary disease. 5.Pneumonia. 6.Lung cancer. 7.Acute kidney injury. We will go ahead and continue current medications. IV fluid was discontinued during the course of da y today. The patient is on Dobhoff tube feeding, and he is tolerating well, we will continue that. Continue current antibiotic, which is meropenem and vancomycin. The patient is on heparin drip per Tali Oates, we will continue that. Venous Doppler of lower extremities was ordered to rule out DVT. His renal function is slowly improving. Potassium is normal today. Continue oxygen, nebulizer doug atment, and Solu-Medrol. I will see him tomorrow for followup. LORI/MODL Voice ID: [id number] Report ID: [id number]
[2017-11-27] MEDS: IPRATROPIUM BROM 0.5MG/2.5ML NEB SCH ×4 (02:24→20:01)
[2017-11-27] MEDS: ALBUTEROL 2.5 MG/3 ML NEB SOL NEB PRN (02:24)
[2017-11-27] MEDS: VANCOMYCIN 1.5 GM in NA CHLORIDE 0.9% 500 ML IV SCH (03:00)
[2017-11-27 05:48] LABS: Absolute Lymphocytes (CBC) 0.1 K/uL (0.7-4.9); Absolute Monocytes 0.5 K/uL (0.1-1.3); Absolute Neutrophil 12.2 K/uL (1.8-8.0); Basophils % 0.1 % (0-1.3); Hematocrit 29.9 % (39.6-49.0); Lymphocytes % 1.1 % (15.3-44.8); MCH 25.7 pg (27.0-35.0); MCV 79.8 fL (80-100); MPV 8.4 fL (7.6-11.3); Monocytes % 3.9 % (3.3-12.3); RBC Red Blood Cell Count 3.74 M/uL (4.33-5.43)
[2017-11-27 06:09] LABS: Magnesium 1.9 mg/dL (1.8-2.5); Potassium 4.5 mEq/L (3.6-5.0)
[2017-11-27 06:27] LABS: Anisocytosis 1+; Blood Morphology Comment NOTED (NOT SEEN); Platelet Estimate ADEQ
[2017-11-27] MEDS: ARFORMOTEROL TARTRATE 15 MCG/2 ML VIAL.NEB NEB SCH ×2 (08:18→20:00)
--- NOTE | 2017-11-27 08:24 | RAD REPORT ---
EXAM DESCRIPTION: RAD - Chest Single View - 11/27/2017 6:50 am CLINICAL HISTORY: Shortness of breath COMPARISON: 11/26/2017 FINDINGS: Portable technique limits examination quality. Tip of the ET tube remains above the aylin. Enteric tube descends in the stomach. Mild improvement i n right lung aeration since comparative study. The left lung is hyperexpanded and clear. Right lung v olume loss remains unchanged. The heart is mildly enlarged. IMPRESSION: Mild improvement in right lung aeration since comparative study.
[2017-11-27] MEDS: Meropenem 500 MG in NA CHLORIDE 0.9% 100 ML IV SCH ×2 (08:48→20:47)
[2017-11-27] MEDS: FAMOTIDINE 20 MG/2 ML VIAL IV SCH (08:48)
[2017-11-27] MEDS: ENOXAPARIN 100 MG/ML SYR SQ SCH (11:24)
[2017-11-27] MEDS: VITAL AF 1,000 ML BOT RTH SCH (20:47)
[2017-11-27] MEDS: LORazepam 2 MG/ML VIAL IV PRN (20:52)
--- NOTE | 2017-11-28 00:15 | PN ---
Date of Progress Note: 11/27/2017 Subjective: The patient was seen this morning for followup. He was lying in bed in ICU. No new com plaints or problems reported by nursing staff. He remains on ventilator on propofol drip. Urine out put is improving. He is tolerating Dobhoff tube feeding very well. Objective: Vital Signs: Reviewed. HEENT: Unremarkable. LUNGS: Bilateral good and equal entry with diminished air entry in the lower lung burris. Overall i mproving compared to before. No rhonchi, no rales. HEART: Sounds normal. Abdomen: Soft, bowel sounds normal. No guarding, rigidity, tenderness, distention. EXTREMITIES: No leg edema. Laboratory Data: White count 12.1, hemoglobin 9.6, platelets 184. Sodium 138, potassium 4.5, chlori de 110, bicarb 21, BUN 66, creatinine 1.80, glucose 126. Venous Doppler from yesterday was negative for DVT. Echocardiogram shows ejection fraction 48%. It shows mild global hypokinesis. Impression: 1.Septic shock. 2.Acute respiratory failure. 3.Pneumonia. Plan: The patient's blood culture is growing gram-negative rods. Definite identification was liz ortiz. We will continue to follow up on that. Continue current antibiotics. Continue tube feeding as w ell as ventilator management per Dr. Oates. I did discuss with nursing staff this morning to see if we can try to wean off propofol. His acute kidney injury problem is improving very well. I will see him tomorrow for followup. The patient is back on Lovenox and not on IV heparin anymore. LORI/MODL Voice ID: [id number] Report ID: [id number]
[2017-11-28] MEDS: METHYLPREDNISOLONE 40 MG INJ IV SCH ×2 (00:45→09:44)
[2017-11-28] MEDS: IPRATROPIUM BROM 0.5MG/2.5ML NEB SCH ×4 (01:37→19:42)
[2017-11-28] MEDS: LORazepam 2 MG/ML VIAL IV PRN ×2 (05:20→10:16)
[2017-11-28] MEDS: FENTANYL CITR 100 MCG/2 ML IV PRN ×2 (05:30→10:00)
--- NOTE | 2017-11-28 08:26 | RAD REPORT ---
EXAM DESCRIPTION: Nick Single View11/28/2017 6:51 am CLINICAL HISTORY: Shortness of breath COMPARISON: November 27, 2017 FINDINGS: Endotracheal and nasogastric tubes are in good position. Minimal improvement in the right lung opacities has occurred. No other change is noted IMPRESSION: Minimal improvement in right lung opacities
[2017-11-28] MEDS: ARFORMOTEROL TARTRATE 15 MCG/2 ML VIAL.NEB NEB SCH ×2 (08:43→19:42)
[2017-11-28] MEDS: Meropenem 500 MG in NA CHLORIDE 0.9% 100 ML IV SCH (09:00)
[2017-11-28] MEDS: CEFTRIAXONE/SWI 1gm 1 GM/10 ML SYR IV SCH ×2 (09:43→20:43)
[2017-11-28] MEDS: FAMOTIDINE 20 MG/2 ML VIAL IV SCH (09:44)
[2017-11-28] MEDS: PROPOFOL 1,000 MG/100 ML VIAL IV PRN ×3 (10:33→19:00)
[2017-11-28] MEDS: MIDAZOLAM HCL 2 MG/2 ML INJ IV PRN (10:33)
--- NOTE | 2017-11-28 10:45 | P.PN ---
Subjective Date of Service: 11/28/17 Chief Complaint: Respiratory failure Haemophilus influenzae bacteremia Patient's condition has not really change in fact he is having significant desaturation the propofol more agitated all blood clots cultures positive for Haemophilus influenzae is tolerating tube feeds chest x-ray shows minimal improvement Review of Systems is unable to be obtained Physical Examination - Vital Signs Temperature: 99.5 F Blood Pressure: 151/75 Pulse: 122 Respirations: 17 Pulse Ox (%): 93 - Physical Exam General: Other (Unresponsive) Respiratory: Clear to auscultation bilaterally (Crackles on the right side) Cardiovascular: No edema, Normal S1 S2 - Studies Microbiology Data (last 24 hrs): 11/24/17 13:00 Blood - Blood Aerobic Blood Culture - Final Haemophilus Influenza Iii 11/24/17 13:00 Blood - Blood Gram Stain - Final 11/24/17 13:00 Blood - Blood Anaerobic Blood Culture - Final Haemophilus Influenza Iii 11/24/17 13:00 Blood - Blood Gram Stain - Final 11/24/17 13:00 Blood - Blood Aerobic Blood Culture - Final Haemophilus Influenza Iii 11/24/17 13:00 Blood - Blood Gram Stain - Final 11/24/17 13:00 Blood - Blood Anaerobic Blood Culture - Final Haemophilus Influenza Iii 11/24/17 13:00 Blood - Blood Gram Stain - Final Assessment & Plan - Problems (Diagnosis) (1) Shock Current Visit: Yes Status: Resolved Plan: Patient shock has resolved (2) Respiratory failure Current Visit: Yes Status: Acute Plan: Patient has respiratory failure currently on a ventilator chest x-ray does show some improvement he has consolidation on the right lower lobe all blood cultures positive for Haemophilus labs reviewed is tolerating tube feeds creatinine is slightly improved continue with supportive treatment Dc steroids unable to wean the patient patient changed to ceftriaxone Qualifiers: Chronicity: acute
[2017-11-28] MEDS: ENOXAPARIN 100 MG/ML SYR SQ SCH (11:37)
--- NOTE | 2017-11-28 15:01 | PN ---
Date of Progress Note: 11/28/2017 Subjective: The patient was seen this morning for followup. No new complaints or problems reported by nursing staff. His propofol drip was discontinued early this morning and he try to open his eyes, not able to open it completely but at least he is trying. Does not follow any other commands yet. Intake and output records reviewed. Objective: Vital signs: Reviewed. HEENT: Unremarkable. Lungs: Clear to auscultation. No rhonchi. Heart: Sounds normal. Abdomen: Soft, bowel sounds normal. No guarding, rigidity, tenderness, or distention. Extremities: No leg edema. Laboratory Data: Sputum culture and blood culture grows Haemophilus influenzae. Sensitivity results reviewed. Chest x-ray from today shows minimal improvement in right lung opacities. Impression: 1. Septic shock, organism Haemophilus influenzae. 2. Pneumonia, organism Haemophilus influenzae. 3. Lung cancer. 4. Acute kidney injury, improved. Plan: We will go ahead and continue current tube feeding. He is tolerating that very well. We will discontinue vancomycin and discontinue meropenem according to sensitivity results, we will start him on ceftriaxone 1 g IV every 12 hours. Continue Lovenox. We will repeat blood work tomorrow. Yesterday's lab results reviewed. I will see him tomorrow. The patient remains on ventilator and ventilator management will be provided per Dr. Oates. Patient has central line in place in left groin area and site appears normal, will place PICC line and then remove this central line from groin to reduce chances of infection. LORI/MODL Voice ID: [id number] Report ID: [id number] [facility]
[2017-11-28] MEDS: VITAL AF 1,000 ML BOT RTH SCH (16:45)
[2017-11-29] MEDS: PROPOFOL 1,000 MG/100 ML VIAL IV PRN ×3 (00:16→19:00)
[2017-11-29] MEDS: IPRATROPIUM BROM 0.5MG/2.5ML NEB SCH ×5 (01:16→22:05)
[2017-11-29] MEDS: FENTANYL CITR 100 MCG/2 ML IV PRN ×2 (04:59→23:48)
[2017-11-29 05:23] LABS: Absolute Lymphocytes (CBC) 0.4 K/uL (0.7-4.9); Absolute Monocytes 1.5 K/uL (0.1-1.3); Absolute Neutrophil 17.5 K/uL (1.8-8.0); Basophils % 0.2 % (0-1.3); Hematocrit 33.3 % (39.6-49.0); Lymphocytes % 2.2 % (15.3-44.8); MCH 25.9 pg (27.0-35.0); MCV 80.4 fL (80-100); MPV 8.5 fL (7.6-11.3); Monocytes % 7.9 % (3.3-12.3); RBC Red Blood Cell Count 4.15 M/uL (4.33-5.43)
[2017-11-29 05:43] LABS: Magnesium 1.7 mg/dL (1.8-2.5); Potassium 5.4 mEq/L (3.6-5.0)
[2017-11-29 05:50] LABS: Arterial Blood Carboxyhemoglob 1.3 % (0-1.5); Blood Gas Oxyhemoglobin 94.2 % (94-97); Blood O2 Saturation 97.2 % (92-98.5)
[2017-11-29] MEDS: LORazepam 2 MG/ML VIAL IV PRN (05:57)
[2017-11-29 06:25] LABS: Blood Morphology Comment NOT SEEN (NOT SEEN); Platelet Estimate ADEQ; Urine White Blood Cell Casts OK
[2017-11-29] MEDS: ARFORMOTEROL TARTRATE 15 MCG/2 ML VIAL.NEB NEB SCH ×2 (07:28→20:13)
[2017-11-29] MEDS: CEFTRIAXONE/SWI 1gm 1 GM/10 ML SYR IV SCH ×2 (08:31→20:20)
[2017-11-29] MEDS: FAMOTIDINE 20 MG/2 ML VIAL IV SCH (08:31)
[2017-11-29] MEDS: METOPROLOL TAR 25 MG TAB FT SCH ×2 (08:56→20:20)
[2017-11-29] MEDS ORDERED: MAGNESIUM SULFATE 1 gm IVPB 1 GM/100 ML BAG IV ONE (09:00)
[2017-11-29] MEDS ORDERED: SOD POLYSTYREN SUL 15 GM/60 ML UCUP FT ONE (09:00)
[2017-11-29] MEDS: ENOXAPARIN 100 MG/ML SYR SQ SCH (10:17)
--- NOTE | 2017-11-29 10:50 | RAD REPORT ---
EXAM DESCRIPTION: RAD - Chest Single View - 11/28/2017 10:45 pm CLINICAL HISTORY: Respiratory failure. COMPARISON: 11/28/2017, 11/27/2017 FINDINGS: Portable technique limits examination quality. Tip of the ET tube remains above the aylin. Enteric tube descends in the stomach. Right-sided PICC l ine has tip in the SVC. Hyperexpanded left lung is seen. Extensive opacities in the right lung appear s essentially stable. The heart is mildly enlarged in size.
--- NOTE | 2017-11-29 10:52 | RAD REPORT ---
EXAM DESCRIPTION: RAD - Chest Single View - 11/29/2017 6:49 am CLINICAL HISTORY: Respiratory failure. COMPARISON: 11/28/2017 FINDINGS: Portable technique limits examination quality. Tip of the ET tube remains above the aylin. Enteric tube descends in the stomach. Right-sided PICC l ine is unchanged in position. Extensive right-sided pulmonary opacities appear stable. Hyperexpanded left lung is unchanged. No displaced fractures. IMPRESSION: Stable chest since preceding day's study.
[2017-11-29] MEDS: SOTALOL HCL 80 MG TAB PO SCH ×2 (11:51→17:53)
--- NOTE | 2017-11-29 12:03 | EKG ---
Test Date: 2017-11-29 Test Time: 07:33:43 Counseling Director: COCO Terrell MEASUREMENT RESULTS: Intervals: Rate: 147 OR: 200 QRSD: 130 QT: 326 QTc: 510 [place]: P: OR: 200 QRS: 269 T: 5 INTERPRETIVE STATEMENTS: Atrial fibrillation with rapid ventricular response Right bundle branch block Possible Lateral infarct, age undetermined Inferior infarct, age undetermined Abnormal ECG Compared to ECG 11/25/2017 13:35:07 Atrial fibrillation with rapid ventricular response now present Myocardial infarct finding still present Electronically Signed On 11-29-17 12:03:04 CDT by Cali Jarvis
--- NOTE | 2017-11-29 16:14 | CON ---
Date of Consultation: 11/29/2017 Reason For Consult: Atrial fib. History Of Present Illness: The patient has been in the hospital since November 24. This is November 29 , came into the hospital with respiratory distress, hypoxemia. He was basically in shock. The first few days he required a Levophed drip. Earlier in the week he had an episode of narrow complex tachy cardia that seemed to be AV node re-entrant, self-limited, just a few seconds in duration, it went aw ay. Since he has been treated with antibiotics and pressors. Pressors are now removed. He remains intubated. It has been very hard to get him to wean. He has a mildly depressed ejection fraction 48 %, moderate pulmonary hypertension, aortic sclerosis, mitral annular calcification. No aortic stenos is. He has been in normal rhythm up until this morning. Normal rhythm or sinus tachycardia with a r ight bundle branch block, possible old inferior and lateral infarction. There is no clinical history of atrial fib before. He had a cardiac cath done in September 2016 that was vertebroplasty. It actu ally was under cardiac cath procedure. We do not really have any evidence of CAD. The patient has a history of lung cancer, a history of lobe resection. He is believed to be free of lung cancer at th e present time, but he has severe obstructive lung disease, numerous hospital admissions for COPD and pneumonia. Since he has been here a CT scan of his chest was done indicating what looks like pneumo nima and small pleural effusion. There was no contrast. There was not any way to rule out pulmonary embolus with that particular test. Physical Examination: General: The patient is obtunded and intubated. He is on NG tube feeding. He has a PICC line. He is in atrial fibrillation. Vital Signs: Heart rate about 110, blood pressure is 113/59, O2 saturation 95%. He is on a 74% FiO2 on his ventilator. Lungs: Reveal a lot of large airway sounds. Breath sounds appear to be equal bilaterally. I do not detect wheezing. Heart: Irregularly irregular. Heart tones are distant. Difficult to hear. Lot of respiratory nose noises, but I do not appreciate a murmur. Abdomen: Soft. Extremities: Palpable distal pulses. His EKG from today shows atrial fibrillation with no other changes. I think the patient would benefi t from being on Betapace. We will try to re-establish sinus rhythm. He is fully anticoagulated with Lovenox at 90 mg every 24 hours. His renal function is such that we may need to adjust the dose upw ards a little bit. Most recent creatinine he has is 1.43. It has been as high as 2.8, though the perry herron's atrial fibrillation most likely is caused by his severe underlying lung disease. We will try and reestablish sinus rhythm and keep him anticoagulated. TOÑO/KUSH Voice ID: [id number] Report ID: [id number]
[2017-11-29] MEDS ORDERED: IPRATROPIUM BROM 0.5MG/2.5ML NEB PRN (21:55)
--- NOTE | 2017-11-29 21:59 | PN ---
Date of Progress Note: 11/29/2017 Addendum: LORI/KUSH Voice ID: [id number] Report ID: [id number] MTDD
[2017-11-29] MEDS: NA CHLORIDE 0.9% 250 ML IV PRN ×2 (22:00→22:15)
[2017-11-29] MEDS ORDERED: NA CHLORIDE 0.9% 1,000 ML ONE (22:05)
[2017-11-29] MEDS ORDERED: NOREPINEPHRINE 4mg/D5W 250mL 4 MG/250 ML BAG IV ONE (22:42)
[2017-11-29] MEDS ORDERED: HYDROCORTISONE SUC 100 MG INJ ONE (22:42)
[2017-11-29] MEDS ORDERED: HYDROCORTISONE SUC 100 MG INJ IV ONE (22:45)
[2017-11-29] MEDS ORDERED: Pharmacy Consult 1 EA XX PRN (22:52)
[2017-11-29] MEDS ORDERED: VANCOMYCIN/NS 1 gm 1 GM/250 ML BAG ONE (22:56)
[2017-11-29] MEDS ORDERED: PIPERACIL/TAZO 4.5 GM VIAL IV ONE (22:56)
[2017-11-29] MEDS ORDERED: NA CHLORIDE 0.9% 100 ML ONE (22:57)
[2017-11-29] MEDS ORDERED: PIPER/TAZO/NS 4.5gm 4.5 GM/100 ML BAG IVPB SCH (23:00)
[2017-11-29] MEDS ORDERED: VANCOMYCIN 1.5 GM in NA CHLORIDE 0.9% 500 ML IV SCH (23:00)
[2017-11-29] MEDS ORDERED: VANCOMYCIN 500 MG/VIAL ONE (23:39)
[2017-11-29] MEDS ORDERED: NA CHLORIDE 0.9% 250 ML ONE (23:42)
--- NOTE | 2017-11-30 00:50 | PN ---
Date of Progress Note: 11/29/2017 Subjective: The patient was seen this morning for followup. He was in ICU, on ventilator. Yesterday, he was off propofol for few to several hours and after an hour or so, we had to put him back on propofol because of his decline in his condition with hypoxia and distress. Nursing staff had to provide oxygenation using assisted device using Ambu bag and they were not able to maintain oxygen saturation, so after Ambu bag started to maintain his oxygenation well. Before all these thing happened, he was on 45% oxygen, but this morning, he was still on 75%. Hopefully, we can continue to reduce the oxygen delivery as the time goes on. He had some stomach residual, so his feeding was on hold. Currently when I saw him, he was getting 30 cc/hour and tolerating well. Has a PICC line in place and central line from groin was removed. Intake and output records reviewed. Objective: Vital Signs: Reviewed. HEENT: Examination unremarkable. Lungs: Clear to auscultation. No rhonchi. Heart: Sounds normal. Abdomen: Soft. Bowel sounds normal. No guarding, rigidity, tenderness, or distention. Extremities: No leg edema. Laboratory Data: White count 19.5, hemoglobin 10.8, platelets 204. Sodium 145 , potassium 5.4, chloride 113, bicarb 26, BUN 79, creatinine 1.43, glucose 136. Magnesium 1.7. Impression: 1. Septic shock. 2. Pneumonia, organism Haemophilus influenzae. 3. Acute kidney injury, improving. 4. Acute respiratory failure. 5. Acute exacerbation of chronic obstructive pulmonary disease. 6. Hyperkalemia. 7. Atrial fibrillation with rapid ventricular rate. 8. Anemia. Plan: The patient has elevated WBC count which is likely due to steroid use. Dr. Oates has discontinued steroid. We will follow up on blood work tomorrow. Continue ceftriaxone. For elevated potassium, Kayexalate 30 g dose was ordered. We will repeat blood work tomorrow. Renal function is improving. Today, creatinine is 1.43. Highest creatinine during this admission was 3.04. We will go ahead and continue tube feeding. Metoprolol was ordered to be given. The patient is already on Lovenox. We will consult Cardiology and I will see him tomorrow for followup. I did talk to the patient's and explained her about our inability to wean off the patient from ventilator and recommended that we should transfer him to long-term acute care facility. She is agreeable to do so. We will consult Social Service to help make this arrangements tomorrow. Overall, prognosis is guarded. LORI/MODL Voice ID: [id number] Report ID: [id number] MTDD
[2017-11-30 03:24] LABS: Albumin 2.3 g/dL (3.2-5.5); Bilirubin Total 0.9 mg/dL (0.3-1.2); Magnesium 2.3 mg/dL (1.8-2.5); Protein, Total 5.9 g/dL (6.0-8.3)
[2017-11-30 03:29] LABS: Absolute Lymphocytes (CBC) 1.8 K/uL (0.7-4.9); Absolute Monocytes 0.1 K/uL (0.1-1.3); Absolute Neutrophil 29.1 K/uL (1.8-8.0); Basophils % 0.8 % (0-1.3); Eosinophils % 1.4 % (0-4.4); Hematocrit 35.8 % (39.6-49.0); Lymphocytes % 5.6 % (15.3-44.8); MCH 25.6 pg (27.0-35.0); MCV 81.5 fL (80-100); MPV 8.6 fL (7.6-11.3); Monocytes % 0.4 % (3.3-12.3)
[2017-11-30 03:34] LABS: Potassium 6.2 mEq/L (3.6-5.0)
[2017-11-30 03:35] LABS: Anisocytosis 1+; Blood Morphology Comment NOTED (NOT SEEN); Platelet Estimate ADEQ; Polychromasia SLIGHT
[2017-11-30] MEDS ORDERED: CALCIUM GLUC 10% INJ 4.65 MEQ in NA CHLORIDE 0.9% 100 ML IV ONE ×2 (03:38→07:40)
[2017-11-30] MEDS ORDERED: D50W 25 GM/50 ML SYRINGE IV PRN ×2 (03:38→07:39)
[2017-11-30] MEDS ORDERED: GLUCAGON 1 MG/VIAL IM PRN ×2 (03:38→07:39)
[2017-11-30] MEDS ORDERED: D50W 25 GM/50 ML SYRINGE IV ONE ×2 (03:38→07:39)
[2017-11-30] MEDS ORDERED: INSULIN -REGULAR HUMAN 50 UNIT/0.5 ML ML IV ONE ×2 (03:39→07:45)
[2017-11-30] MEDS ORDERED: CALCIUM GLUCONATE 1 GM IVPB 1 GM/50 ML BAG IV ONE ×2 (03:43→07:44)
[2017-11-30] MEDS ORDERED: SOD POLYSTYREN SUL 15 GM/60 ML UCUP FT SCH (04:00)
[2017-11-30] MEDS ORDERED: NOREPINEPHRINE 4mg/D5W 250mL 4 MG/250 ML BAG IV ONE (04:11)
[2017-11-30] MEDS: NOREPINEPHRINE 4 MG in D5W 250 ML IV PRN (04:24)
[2017-11-30 05:17] LABS: Arterial Blood Carboxyhemoglob 0.9 % (0-1.5); Blood Gas Oxyhemoglobin 96.1 % (94-97); Blood O2 Saturation 98.8 % (92-98.5)
[2017-11-30] MEDS: VITAL AF 1,000 ML BOT RTH SCH (06:15)
[2017-11-30] MEDS ORDERED: PIPER/TAZO/NS 4.5gm 4.5 GM/100 ML BAG IVPB SCH (07:00)
[2017-11-30 07:07] LABS: Arterial Blood Carboxyhemoglob 1.1 % (0-1.5); Blood Gas Oxyhemoglobin 84.2 % (94-97); Blood O2 Saturation 86.8 % (92-98.5)
[2017-11-30] MEDS: SOTALOL HCL 80 MG TAB PO SCH ×2 (07:11→17:45)
--- NOTE | 2017-11-30 07:58 | P.PN ---
Subjective Date of Service: 11/30/17 Chief Complaint: Respiratory failure Haemophilus influenzae bacteremia Patient's condition has deteriorated he was coded multiple times yesterday is not high concentrations of oxygen and difficulty oxygen 18 the patient patient is hypercapnic currently on propofol and Levophed drip antibiotics was changed to Zosyn vancomycin Review of Systems is unable to be obtained Physical Examination - Vital Signs Temperature: 98.6 F Blood Pressure: 116/66 Pulse: 86 Respirations: 7 Pulse Ox (%): 94 - Physical Exam General: Unresponsive Respiratory: Crackles/rales (Crackles bilaterally) Cardiovascular: No edema, Normal S1 S2 Gastrointestinal: Soft and benign, Non-distended Assessment & Plan - Problems (Diagnosis) (1) Shock Current Visit: Yes Status: Resolved Plan: Patient is still in shock was resumed on Levophed back on broad-spectrum antibiotic labs reviewed renal function is slightly worse patient has also developed AFib is anti coagulated dose adjusted by pharmacy patient is on tube feeds (2) Respiratory failure Current Visit: Yes Status: Acute Plan: Patient is in respiratory failure requiring high concentrations of oxygen hypercapnic I do not think is pulse ox is correlating with his arterial blood gases will recheck his blood gases Qualifiers: Chronicity: acute
[2017-11-30 08:08] LABS: Arterial Blood Carboxyhemoglob 1.2 % (0-1.5); Blood Gas Oxyhemoglobin 90.3 % (94-97); Blood O2 Saturation 93.2 % (92-98.5)
[2017-11-30] MEDS: ARFORMOTEROL TARTRATE 15 MCG/2 ML VIAL.NEB NEB SCH ×2 (08:14→19:41)
[2017-11-30] MEDS: IPRATROPIUM BROM 0.5MG/2.5ML NEB SCH ×4 (08:14→19:41)
--- NOTE | 2017-11-30 08:14 | RAD REPORT ---
EXAM DESCRIPTION: Nick Single View11/29/2017 11:07 pm CLINICAL HISTORY: Chest pain COMPARISON: November 29 FINDINGS: Lines and tubes are in good position. Mild improvement in a right lung opacities has occurred. Mild worsening in left basilar opacities is noted. No other change is seen IMPRESSION: Mild improvement in right and a mild worsening in left basilar opacities which may repre sent pneumonia
--- NOTE | 2017-11-30 08:15 | RAD REPORT ---
EXAM DESCRIPTION: Nick Single View11/30/2017 2:59 am CLINICAL HISTORY: Chest pain COMPARISON: November 29, 2017 FINDINGS: Lines and tubes are in good position. No change has occurred in the bilateral pulmonary op acities IMPRESSION: No change in the bilateral pulmonary opacities
[2017-11-30] MEDS: METOPROLOL TAR 25 MG TAB FT SCH ×2 (09:00→21:48)
[2017-11-30] MEDS: FAMOTIDINE 20 MG/2 ML VIAL IV SCH (09:41)
[2017-11-30] MEDS: PIPER/TAZO/NS 4.5gm 4.5 GM/100 ML BAG IVPB SCH ×2 (09:54→16:38)
[2017-11-30 10:02] LABS: Potassium 5.4 mEq/L (3.6-5.0)
[2017-11-30 10:03] LABS: Magnesium 2.8 mg/dL (1.8-2.5)
[2017-11-30] MEDS: ENOXAPARIN 100 MG/ML SYR SQ SCH (11:36)
--- NOTE | 2017-11-30 13:54 | EKG ---
Test Date: 2017-11-30 Test Time: 02:36:59 Staff Registered Nurse: RT-O MEASUREMENT RESULTS: Intervals: Rate: 79 OR: 152 QRSD: 140 QT: 404 QTc: 463 Elizabeth: P: 70 OR: 152 QRS: -85 T: 0 INTERPRETIVE STATEMENTS: Normal sinus rhythm Left axis deviation Right bundle branch block Inferior infarct, age undetermined Abnormal ECG Compared to ECG 11/29/2017 07:33:43 Left-axis deviation now present Atrial fibrillation no longer present Myocardial infarct finding still present Electronically Signed On 11-30-17 13:53:27 CDT by Cali Jarvis
[2017-11-30] MEDS ORDERED: VANCOMYCIN 1.5 GM in NA CHLORIDE 0.9% 500 ML IV SCH (23:00)
[2017-12-01] MEDS: VANCOMYCIN 1.5 GM in NA CHLORIDE 0.9% 500 ML IV SCH ×2
[2017-12-01] MEDS: IPRATROPIUM BROM 0.5MG/2.5ML NEB SCH ×4 (01:00→19:44)
--- NOTE | 2017-12-01 01:03 | PN ---
Date of Progress Note: 11/30/2017 Subjective: The patient was seen this morning for followup. When I saw him this morning, he was on ventilator. Last night, the patient was coded 2 different times. Each time, he went into asystole. First time, he required chest compression probably for about 30 seconds or so and second time it was about 3-4 minutes of chest compression along with some use of medication like epinephrine and DrNikhil alvarez has added Zosyn and vancomycin, and the patient was started on Levophed IV drip. I did contac t the patient's this morning and details were discussed with her and nursing staff did try to co ntact the last night, but they were not able to contact her. Thus patient's told me she kendrick rowan left her phone turned off. I did discuss details with Dr. Oates this morning. Objective: Vital Signs: Reviewed. HEENT: Examination unremarkable. Lungs: Clear to auscultation. Heart: Sounds normal. Abdomen: Soft, bowel sounds normal. No guarding, rigidity, tenderness, or distention. Extremities: No leg edema. Laboratory Data: White count 31.7, hemoglobin 11.3, platelets 293. Potassium this morning 5.8 but o n 3 o'clock in the morning. Sodium was 146, potassium was 6.2, chloride 116, bicarb 27, BUN 93, crea tinine 1.84, glucose 179. Impression: 1.Septic shock. 2.Cardiac arrest. 3.Pneumonia. 4.Acute respiratory failure. 5.Acute exacerbation of chronic obstructive pulmonary disease. 6.Acute kidney injury. 7.Hyperkalemia. Plan: The patient is tolerating tube feeding well. We will continue Lovenox, antibiotic, oxygen neb ulizer treatment to follow up with workforce staffing advisor and employee relation manager. Overall, prognosis is poor. For atrial fibrillation, he is on sotalol. We will have to hold his transfer to long-term acute care [facility] at this point until his condition is more stable. If he remained stable, within a part of this week like or Thursday, we might be able to discharge to go to such facility, and I did discus s all these details with the patient's and she was advised to start working with the social work er to at least try to get all the necessary paperwork for patient to go to long-term acute care facil ity. So, if and when we are ready, later on then we can plan to discharge him at that particular poi nt, but overall prognosis is poor. LORI/MODL Voice ID: [id number] Report ID: [id number]
[2017-12-01] MEDS: PIPER/TAZO/NS 4.5gm 4.5 GM/100 ML BAG IVPB SCH ×3 (01:46→16:04)
[2017-12-01] MEDS: SOTALOL HCL 80 MG TAB PO SCH ×2 (07:03→18:25)
[2017-12-01] MEDS ORDERED: BISACODYL 10 MG RECTAL SUPP PR ONE (07:20)
[2017-12-01] MEDS: ARFORMOTEROL TARTRATE 15 MCG/2 ML VIAL.NEB NEB SCH ×2 (07:32→19:44)
[2017-12-01 07:56] LABS: Absolute Lymphocytes (CBC) 0.5 K/uL (0.7-4.9); Absolute Monocytes 0.9 K/uL (0.1-1.3); Absolute Neutrophil 22.9 K/uL (1.8-8.0); Basophils % 0.3 % (0-1.3); Eosinophils % 0.1 % (0-4.4); Hematocrit 32.5 % (39.6-49.0); MCH 25.5 pg (27.0-35.0); MCV 80.7 fL (80-100); MPV 8.8 fL (7.6-11.3); Monocytes % 3.8 % (3.3-12.3); RBC Red Blood Cell Count 4.03 M/uL (4.33-5.43)
[2017-12-01 08:06] LABS: Potassium 3.8 mEq/L (3.6-5.0)
[2017-12-01 08:07] LABS: Magnesium 2.6 mg/dL (1.8-2.5)
--- NOTE | 2017-12-01 08:30 | P.PN ---
Subjective Date of Service: 12/01/17 Chief Complaint: Respiratory failure Haemophilus influenzae bacteremia Patient's condition is improving he is off vasopressors and propofol he is more stable today although unresponsive Review of Systems is unable to be obtained Physical Examination - Vital Signs Temperature: 98.4 F Blood Pressure: 146/75 Pulse: 106 Respirations: 25 Pulse Ox (%): 95 - Physical Exam General: Unresponsive Neck: Supple Respiratory: Clear to auscultation bilaterally, Diminished Cardiovascular: No edema, Normal S1 S2 Assessment & Plan - Problems (Diagnosis) (1) Respiratory failure Current Visit: Yes Status: Acute Plan: Patient is doing much better he is off vasopressors and propofol titrate sat to 90% recheck ABGs chest x-ray white count is declining patient is hypernatremic NG tube water flushes tolerating tube FT continue with anticoagulation stable to be transferred now to an tach patient is on broad-spectrum antibiotics with Zosyn and vancomycin he could have had a super infection although all his blood cultures are positive for Haemophilus Qualifiers: Chronicity: acute
[2017-12-01] MEDS: METOPROLOL TAR 25 MG TAB FT SCH ×2 (09:00→09:11)
[2017-12-01] MEDS: FAMOTIDINE 20 MG/2 ML VIAL IV SCH (09:11)
[2017-12-01 09:25] LABS: Arterial Blood Carboxyhemoglob 1.6 % (0-1.5); Blood Gas Oxyhemoglobin 92.4 % (94-97); Blood O2 Saturation 95.4 % (92-98.5)
--- NOTE | 2017-12-01 09:28 | RAD REPORT ---
EXAM DESCRIPTION: RAD - Chest Single View - 12/01/2017 9:10 am CLINICAL HISTORY: Respiratory failure, intubation COMPARISON: November 30, November 29 chest films, November 16 CT chest TECHNIQUE: AP portable chest image was obtained 0845 hours . FINDINGS: Endotracheal tube remains in good position mid aortic arch level. NG tube is not well visu alized on today's examination but does extend below the diaphragm. No [facility]. Prominence of the interstitial markings in the lower left lung field has not changed. No new or enlar ging mass or infiltrate in the left hemithorax. The volume reduced right hemithorax continues to show prominent interstitial stranding and pleural thickening. Pattern is stable. Heart size is normal ran ge. No vascular engorgement. Fullness of the right hilum is present. No pneumothorax or enlarging ple ural fluid. IMPRESSION: Extensive right hemithorax pleural and parenchymal opacification not clearly different f rom prior imaging. Left lung base interstitial stranding similar to prior imaging. No new or progressive finding. Tubes and lines are unchanged from comparison.
[2017-12-01] MEDS: ENOXAPARIN 100 MG/ML SYR SQ SCH ×2 (10:38→21:11)
[2017-12-01] MEDS ORDERED: D5 0.45 NS 1,000 ML IV SCH (19:00)
--- NOTE | 2017-12-01 23:25 | PN ---
Date of Progress Note: 12/01/2017 Subjective: The patient was seen this morning for followup. The patient was on ventilator, not on p ropofol drip as we were able to wean off. He is tolerating feeding well. Has not had a bowel moveme nt in over 1 day. No nausea. No vomiting. Intake and output records reviewed. Objective: Vital Signs: Reviewed. HEENT: Unremarkable. Lungs: Clear to auscultation. No rhonchi or rales. Heart: Sounds normal. Abdomen: Soft. Bowel sounds normal. No guarding, rigidity, tenderness, or distention. Extremities: No leg edema. Laboratory Data: White count 24.4, hemoglobin 10.3, platelets 205. Sodium 152, potassium 3.8, chlor melvi 118, bicarb 28, BUN 87, creatinine 1.71, glucose 158. Impression: 1.Acute respiratory failure. 2.Cardiac arrest. 3.Septic shock. 4.Volume depletion. 5.Anemia. 6.Acute exacerbation of chronic obstructive pulmonary disease. 7.Pneumonia. Plan: The patient's sodium level has gone up. Yesterday, it was 147, today 152. We will go ahead a nd start him on IV fluid, D5 half NS at 50 cc/hour. Continue Lovenox. Continue current antibiotics, ventilator management per Dr. Oates, and we will continue to follow up with account underwriter and car diologist. Dr. Oates has informed us that from his point of view, the patient is stable for trans kristy to go to long-term acute care facility. I would like to wait another day or 2 days just to make sure considering that he had cardiac arrest x2, Thursday night, Thursday morning and if his condition is stable over a period of next 24 hours or so, it will make me feel more comfortable discharging him to another facility to go to long-term acute care facility. We will repeat blood wor k tomorrow. LORI/MODL Voice ID: [id number] Report ID: [id number]
--- NOTE | 2017-12-02 01:08 | PN ---
Date of Progress Note: 12/01/2017 The patient has been seen by Dr. Jarvis. He was admitted to Dr. Holt. Dr. Jarvis placed him on Beta pace and Xarelto yesterday. His ejection fraction by echo was noted to be 48%. Today, he has a norm al rhythm. I will discuss the case further with Dr. Holt regarding discharge planning and anticoagul ation as an outpatient. No change in therapy at this point. SHITAL/KUSH Voice ID: [id number] Report ID: [id number]
[2017-12-02] MEDS: PIPER/TAZO/NS 4.5gm 4.5 GM/100 ML BAG IVPB SCH ×3 (01:11→17:08)
[2017-12-02] MEDS: IPRATROPIUM BROM 0.5MG/2.5ML NEB SCH ×4 (01:43→19:39)
[2017-12-02] MEDS: ALBUTEROL 2.5 MG/3 ML NEB SOL NEB PRN (01:44)
[2017-12-02 05:58] LABS: Arterial Blood Carboxyhemoglob 1.7 % (0-1.5); Blood Gas Oxyhemoglobin 93.8 % (94-97); Blood O2 Saturation 96.7 % (92-98.5)
[2017-12-02 06:08] LABS: Magnesium 2.6 mg/dL (1.8-2.5)
[2017-12-02 06:09] LABS: Absolute Lymphocytes (CBC) 0.6 K/uL (0.7-4.9); Absolute Monocytes 0.9 K/uL (0.1-1.3); Absolute Neutrophil 21.7 K/uL (1.8-8.0); Basophils % 0.7 % (0-1.3); Hematocrit 32.2 % (39.6-49.0); Lymphocytes % 2.6 % (15.3-44.8); MCH 25.4 pg (27.0-35.0); MCV 80.8 fL (80-100); MPV 9.3 fL (7.6-11.3); Monocytes % 3.7 % (3.3-12.3); RBC Red Blood Cell Count 3.99 M/uL (4.33-5.43)
[2017-12-02 06:10] LABS: Potassium 3.2 mEq/L (3.6-5.0)
[2017-12-02] MEDS: SOTALOL HCL 80 MG TAB PO SCH ×2 (07:23→17:08)
[2017-12-02] MEDS: ARFORMOTEROL TARTRATE 15 MCG/2 ML VIAL.NEB NEB SCH ×2 (07:45→19:39)
[2017-12-02] MEDS: FENTANYL CITR 100 MCG/2 ML IV PRN ×3 (08:45→19:15)
[2017-12-02] MEDS: D5W 1,000 ML IV SCH (08:51)
[2017-12-02] MEDS: ENOXAPARIN 100 MG/ML SYR SQ SCH ×2 (08:51→21:41)
[2017-12-02] MEDS: LORazepam 2 MG/ML VIAL IV PRN (09:45)
--- NOTE | 2017-12-02 09:48 | RAD REPORT ---
EXAM DESCRIPTION: RAD - Abdomen 1 View (KUB) - 12/02/2017 9:13 am CLINICAL HISTORY: Abdominal pain, possible ileus COMPARISON: None. FINDINGS: NG tube is in place. Tip is in the proximal stomach with overall decompression of the stom ach. Air and stool are present in nondilated colon. No dilated small bowel loops identifiable. No bear e air or pneumatosis. Moderate stool is seen in the rectum. No suspicious calcifications. Postsurgica l clips are seen in the abdomen suspected to be part of aortoiliac repair procedure. Vascular stent i s seen in the midline pelvis. IMPRESSION: Stomach is decompressed. Air and stool are present in nondilated colon. Small bowel does not appear dilated. No significant small bowel finding identifiable. No free air or pneumatosis.
[2017-12-02] MEDS: FAMOTIDINE 20 MG/2 ML VIAL IV SCH (10:19)
[2017-12-02] MEDS ORDERED: POTASSIUM 25 MEQ EFFERV TAB PO ONE ×2 (11:20→19:00)
[2017-12-02] MEDS: VANCOMYCIN 1.5 GM in NA CHLORIDE 0.9% 500 ML IV SCH (11:38)
--- NOTE | 2017-12-02 12:01 | P.PN ---
Subjective Date of Service: 12/02/17 Chief Complaint: Respiratory failure Haemophilus influenzae bacteremia Patient unresponsive the abdomen was distended Review of Systems is unable to be obtained Physical Examination - Vital Signs Temperature: 97.7 F Blood Pressure: 122/62 Pulse: 82 Respirations: 25 Pulse Ox (%): 98 - Physical Exam General: Unresponsive Neck: Supple Respiratory: Clear to auscultation bilaterally Cardiovascular: Normal pulses, Regular rate/rhythm, Normal S1 S2 Gastrointestinal: Distended Assessment & Plan - Problems (Diagnosis) (1) Respiratory failure Current Visit: Yes Status: Acute Plan: Currently stable abdomen distended KUB negative for obstruction i.e. residuals at some regular an patient is hypernatremic started on D5 including fluid boluses white count is stable cultures negative patient on 45% oxygen chest x- ray is improved blood culture 1 set positive for Gram-positive Saucedo and clusters continue with antibiotics change to SIMV and peep Qualifiers: Chronicity: acute
--- NOTE | 2017-12-02 12:29 | PN ---
Subjective: He remains in sinus rhythm. Seems to be hemodynamically doing okay. Still has evidence of sepsis and not recovering too quickly. Helping him stay in sinus rhythm is the main goal for Car diology. TOÑO/KUSH Voice ID: [id number] Report ID: [id number]
--- NOTE | 2017-12-02 22:56 | PN ---
Date of Progress Note: 12/02/2017 The patient was seen this morning for followup, no new complaints or problems reported by nursing sta ff. He was on ventilator. Intake and output records were reviewed. Objective: Vital Signs: Reviewed. HEENT: Examination unremarkable. Lungs: Clear to auscultation. Heart: Sounds normal. Abdomen: Soft. Bowel sounds normal, but abdomen appears slightly distended compared to yesterday. No guarding, rigidity, or tenderness. Extremities: No leg edema. Laboratory Data: White count 23.4, hemoglobin 10.1, and platelets 222. Sodium 159, potassium 3.2, c hloride 121, bicarb 28, BUN 85, creatinine 1.67, and glucose 165. Blood culture from 11/30/2017 is g staceying gram-positive cocci. Impression: 1.Septic shock. 2.Pneumonia. 3.Acute kidney injury. 4.Atrial fibrillation. 5.Sick sinus syndrome. 6.Acute respiratory failure. 7.Acute exacerbation of chronic obstructive pulmonary disease. 8.Hypokalemia. 9.Volume depletion. The patient's WBC count is improving. He is currently on vancomycin and Zosyn, we will continue that . Initial blood culture had grown Haemophilus influenzae. Blood culture from 2 days ago is growing gram-positive cocci, only 1 bottle out of 2 sets, we are not sure whether this is actually skin conta minant or not. White count is improving, and we will continue current antibiotics. Respiratory briseida yosi, ventilator management is being provided by Dr. Oates, and today, the patient had episodes of asystole that lasted for 7 seconds and he did not require any intervention at all, and when that e pisode got terminated spontaneously, he went into atrial fibrillation. This is his third episode of asystole in last 2-3 days. We believe he has sick sinus syndrome, and I did talk to Dr. Jarvis and bobby yancey informed me that his recommendation is for the patient to be transferred to [place] [facility] to see if they would consider pacemaker placement. Dr. Oates, I talked to him as well je hroan and he informed me that he believes that the way the patient's current condition is that the pat ient can be extubated over period of time, but likely will need tracheostomy in near future. I did r equest the patient's to come to the office to discuss with me about all these details, and all t he details were explained to her. The patient is full code, and she understands poor prognosis as I explained it to her, but at this point, she wants everything done including our recommendation of tra nsferring him to [place] for higher level of care. With that in mind, we initiated transfer process and found out that [facility] [place] is at full capacity and they are not accepti ng any patients from outside, so we did contact [facility] and I communicated with car diologist as well as medical ICU physician and details were discussed with both of these physicians a nd they have accepted the patient, but later on, I was notified from our hospital that the patient go t denial from [facility] and this was administrative denial for reason that is not kno wn to us. After this, I have requested nursing staff to initiate the transfer process to [facility]. This morning, we had ordered electrolyte replacement protocol for correction of potassium, and for his elevated sodium and chloride, we will give IV fluid D5W per order as well as tube feeding was discontinued and instead of that, we will just give him water through the tube instead of any fe eding formula. We expect that this should help his electrolyte imbalance. Continue Lovenox per curr ent order. LORI/MODL Voice ID: [id number] Report ID: [id number]
[2017-12-03] MEDS: D5W 1,000 ML IV SCH ×3 (00:36→15:27)
[2017-12-03] MEDS: PIPER/TAZO/NS 4.5gm 4.5 GM/100 ML BAG IVPB SCH ×3 (00:37→17:10)
[2017-12-03] MEDS: IPRATROPIUM BROM 0.5MG/2.5ML NEB SCH ×4 (01:25→19:09)
[2017-12-03 05:11] LABS: Absolute Lymphocytes (CBC) 0.7 K/uL (0.7-4.9); Absolute Monocytes 0.9 K/uL (0.1-1.3); Absolute Neutrophil 18.2 K/uL (1.8-8.0); Basophils % 0.8 % (0-1.3); Hematocrit 31.8 % (39.6-49.0); Lymphocytes % 3.7 % (15.3-44.8); MCH 25.4 pg (27.0-35.0); MCV 81.6 fL (80-100); MPV 9.7 fL (7.6-11.3); Monocytes % 4.6 % (3.3-12.3); RBC Red Blood Cell Count 3.89 M/uL (4.33-5.43)
[2017-12-03 05:44] LABS: Magnesium 2.4 mg/dL (1.8-2.5); Potassium 3.7 mEq/L (3.6-5.0)
[2017-12-03 06:01] LABS: Arterial Blood Carboxyhemoglob 2.1 % (0-1.5); Blood Gas Oxyhemoglobin 87.7 % (94-97)
[2017-12-03] MEDS: SOTALOL HCL 80 MG TAB PO SCH ×2 (06:25→17:11)
[2017-12-03] MEDS: ARFORMOTEROL TARTRATE 15 MCG/2 ML VIAL.NEB NEB SCH ×2 (07:28→19:10)
--- NOTE | 2017-12-03 08:04 | P.PN ---
Subjective Date of Service: 12/03/17 Chief Complaint: Respiratory failure Haemophilus influenzae bacteremia Patient's condition has stabilized although is not responsive still hypernatremic renal function is slightly worse Review of Systems is unable to be obtained Physical Examination - Vital Signs Temperature: 100.1 F Blood Pressure: 129/68 Pulse: 89 Respirations: 25 Pulse Ox (%): 95 - Physical Exam General: Unresponsive Respiratory: Clear to auscultation bilaterally Cardiovascular: No edema, Normal S1 S2 Assessment & Plan - Problems (Diagnosis) (1) Respiratory failure Current Visit: Yes Status: Acute Plan: Patient's condition is stable z no further episodes of asystole still hypernatremic increase IV fluids the start on low doses of tube feeds the maintained at integrity white count is declining continue with Zosyn and vancomycin patient is currently on SIMV minimal oxygen support his condition has stabilized hemodynamically stable stable to be transferred part of his unresponsiveness may be from metabolic encephalopathy secondary to hypernatremia IV fluids had been increased Qualifiers: Chronicity: acute
[2017-12-03] MEDS: ENOXAPARIN 100 MG/ML SYR SQ SCH ×2 (08:20→21:44)
[2017-12-03] MEDS: FAMOTIDINE 20 MG/2 ML VIAL IV SCH (08:20)
[2017-12-03] MEDS: ALBUTEROL 2.5 MG/3 ML NEB SOL NEB PRN (19:09)
[2017-12-03] MEDS: VANCOMYCIN 1.5 GM in NA CHLORIDE 0.9% 500 ML IV SCH (22:42)
--- NOTE | 2017-12-03 23:54 | PN ---
Date of Progress Note: 12/03/2017 Subjective: The patient was seen this morning for followup. No new complaints or problems reported by nursing staff. He was lying in bed, on ventilator. Intake and output records reviewed. Objective: Vital signs: Reviewed. HEENT: Unremarkable. Lungs: Bilaterally clear to auscultation. Heart: Sounds normal. Abdomen: Soft. Bowel sounds normal. No guarding, rigidity, tenderness, or distention. Extremities: No leg edema, but edema of both upper extremity present. Laboratory Data: White count 20. Yesterday, white count was 23.4. Hemoglobin today 9.9, platelets 255. Sodium this morning 156 and yesterday sodium level was 159. Today's potassium 3.7, chloride 11 9, bicarb 29, BUN 81, creatinine 1.87. Yesterday, creatinine was 1.67. Glucose 127. Impression: 1.Paroxysmal atrial fibrillation. 2.Cardiac arrest. 3.Acute respiratory failure. 4.Acute exacerbation of chronic obstructive pulmonary disease. 5.Pneumonia. 6.Volume depletion. 7.Acute kidney injury. 8.Septic shock. 9.Anemia. Plan: We will continue free water and current IV fluid per order. Nasogastric tube and IV fluid D5W will be continued. Continue current antibiotics. He will follow up with Dr. Oates for ventilato r management and continue to follow with surgical appliance fitter. I was told this morning that [facility] gave us administrative denial, so we did start the patient on third hospital transfer [facility] and we initiated request to [facility] and they did not have any beds available. [facility] still do not have any beds available, so we will continue to try to transfer him to one o [facility]. If they have any bed available and if the patient gets accepted, then we would go a head and the patient meanwhile will continue current medical management at our hospital. Sodium leve l is still down. By tomorrow, I expect it to improve further. The patient is still not waking up. He has not received any vasopressor medication or propofol in over 24 hours. LORI/MODL Voice ID: [id number] Report ID: [id number]
[2017-12-04] MEDS: ALBUTEROL 2.5 MG/3 ML NEB SOL NEB PRN (00:49)
[2017-12-04] MEDS: IPRATROPIUM BROM 0.5MG/2.5ML NEB SCH ×4 (01:01→19:49)
[2017-12-04] MEDS: PIPER/TAZO/NS 4.5gm 4.5 GM/100 ML BAG IVPB SCH ×3 (01:03→17:18)
[2017-12-04] MEDS: D5W 1,000 ML IV SCH ×2 (01:27→06:07)
[2017-12-04 05:31] VITALS: BMI 28.1
[2017-12-04] MEDS: SOTALOL HCL 80 MG TAB PO SCH ×2 (05:33→17:18)
[2017-12-04 05:34] LABS: Arterial Blood Carboxyhemoglob 2.2 % (0-1.5); Blood Gas Oxyhemoglobin 90.6 % (94-97); Blood O2 Saturation 93.9 % (92-98.5)
[2017-12-04 06:04] LABS: Absolute Lymphocytes (CBC) 0.6 K/uL (0.7-4.9); Absolute Monocytes 0.8 K/uL (0.1-1.3); Absolute Neutrophil 13.2 K/uL (1.8-8.0); Basophils % 1.3 % (0-1.3); Eosinophils % 0.2 % (0-4.4); Hematocrit 30.5 % (39.6-49.0); Lymphocytes % 4.3 % (15.3-44.8); MCH 25.5 pg (27.0-35.0); MPV 9.6 fL (7.6-11.3); Monocytes % 5.5 % (3.3-12.3); RBC Red Blood Cell Count 3.72 M/uL (4.33-5.43)
[2017-12-04 06:11] LABS: Magnesium 2.3 mg/dL (1.8-2.5); Potassium 3.6 mEq/L (3.6-5.0)
[2017-12-04 07:01] LABS: Blood Morphology Comment NOT SEEN (NOT SEEN); Platelet Estimate ADEQ; Urine White Blood Cell Casts OK
[2017-12-04] MEDS: ARFORMOTEROL TARTRATE 15 MCG/2 ML VIAL.NEB NEB SCH ×2 (07:20→19:38)
[2017-12-04] MEDS: FAMOTIDINE 20 MG/2 ML VIAL IV SCH (09:00)
[2017-12-04] MEDS: ENOXAPARIN 100 MG/ML SYR SQ SCH ×2 (09:32→21:45)
[2017-12-04] MEDS ORDERED: D5W 1,000 ML IV SCH (09:53)
--- NOTE | 2017-12-04 09:54 | P.PN ---
Subjective Date of Service: 12/04/17 Chief Complaint: Respiratory failure Haemophilus influenzae bacteremia Patient is still not responsive hemodynamically stable no further cardiac events Review of Systems is unable to be obtained Physical Examination - Vital Signs Temperature: 97.7 F Blood Pressure: 149/88 Pulse: 79 Respirations: 21 Pulse Ox (%): 96 - Physical Exam General: Unresponsive Respiratory: Expiratory wheezes Cardiovascular: No edema, Normal S1 S2 Assessment & Plan - Problems (Diagnosis) (1) Respiratory failure Current Visit: Yes Status: Acute Plan: Patient day is wheezing unresponsive hypernatremia improving renal function improving probably has metabolic encephalopathy from Haemophilus chest x-rays back to his baseline Dc is a vancomycin patient is currently on SIMV pressure support 35% oxygen continue with IV fluids reduced rate to 75 continue with bronchodilator stable for transfer if needed recent blood cultures are more likely contaminant coagulase negative Staph aureus Qualifiers: Chronicity: acute
--- NOTE | 2017-12-04 09:56 | RAD REPORT ---
EXAM DESCRIPTION: Nick Single View12/04/2017 9:12 am CLINICAL HISTORY: Shortness of breath COMPARISON: none FINDINGS: No change has occurred in the volume loss and opacification of the right lung. Mild left lung opacities are stable. PICC line has its tip in the superior vena cava. Endotracheal tube has its tip well above the aylin. Nasogastric tube is present within the stomach IMPRESSION: No significant change since December 01
[2017-12-04] MEDS: FENTANYL CITR 100 MCG/2 ML IV PRN ×3 (12:55→21:45)
--- NOTE | 2017-12-04 15:13 | PN ---
Date of Progress Note: 12/04/2017 Subjective: The patient was seen this morning for followup. Lying in bed, on ventilator. No new co mplaints or problems reported by nursing staff. Objective: Vital Signs: Reviewed. HEENT: Unremarkable. Lungs: scattered rales in both lung burris noted. Neurologic: The patient does not respond to any commands. Tolerating tube feeding at 10 cc/hour. I ntake and output records reviewed. Heart: Sounds normal. Abdomen: Soft. Bowel sounds normal. No guarding, rigidity, tenderness, or distention. Extremities: No leg edema, but edema remains unchanged. Laboratory Data: White count 14.8, hemoglobin 9.5, and platelets 223. Sodium 151, potassium 3.6, ch loride 117, bicarb 28, BUN 71, creatinine 1.76, glucose 131, and magnesium 2.3. Impression: 1.Acute respiratory failure. 2.Acute exacerbation of chronic obstructive pulmonary disease. 3.Pneumonia. 4.Anemia. 5.Volume depletion. 6.Acute kidney injury. 7.Paroxysmal atrial fibrillation. 8.Sick sinus syndrome. 9.Septic shock. Plan: We will go ahead and continue current medications, antibiotics, Lovenox. Tube feeding will be increased to 20 cc/hour and if he tolerates that well, then we will increase rate again to 30 cc/alisson r. Continue IV fluid. We will get a chest x-ray done as of this morning. [facility], and [facility] does not have any bed available and rechecking on a day-to-day basis for the bed status. Sodium level is improving with free water through the feeding tube as well as IV fluid. Renal function is stable to slightly better. Chest x-ray was ordered. We will fo llow up on the results. LORI/MODL Voice ID: [id number] Report ID: [id number]
[2017-12-04] MEDS ORDERED: BISACODYL 10 MG RECTAL SUPP PR ONE (15:41)
--- NOTE | 2017-12-04 20:25 | RAD REPORT ---
EXAM DESCRIPTION: VAS - Extremity Venous Uni Ltd - 12/04/2017 8:20 pm CLINICAL HISTORY: Bilateral arm pain and swelling COMPARISON: None. TECHNIQUE: Real-time sonographic evaluation of the bilateral upper extremity deep venous systems was performed. FINDINGS: Normal compressibility, flow augmentation, phasic flow and spontaneous flow are identified in the bilateral upper extremity deep venous system. No intraluminal filling defects seen. Internal jugular and subclavian veins are normal as well. IMPRESSION: No DVT in the bilateral upper extremities.
[2017-12-04 21:53] VITALS: O2SAT 98
[2017-12-04 21:58] VITALS: BP 120/65; TEMP 98.5
[2017-12-05] MEDS ORDERED: FAMOTIDINE 20 MG TAB FT SCH (09:00)
--- NOTE | 2017-12-06 11:00 | DS ---
Date of Discharge: 12/04/2017 Disposition: Transferred to [facility] for higher level of care. Physical Examination: For physical exam, see copy of today's progress note dictation. Discharge Medication Instructions: Continue all current medications and see copy of transfer order for details. Hospital Course: An 82-year-old male patient, who came in to see me at office with complaints of fever, confusion, shortness of breath. Please see dictated H and P for more information. The patient's called around 8 o'clock, and she was concerned about the patient not eating well and she was advised to bring patient to office right away. After the patient was brought in to office , he was evaluated immediately. reported that for 3 to 4 days, he was not feeling good, having cough, congestion, shortness of breath, wheezing. When I saw him at the office, he was sitting in the wheelchair, confused, very weak, not able to get up and walk. The patient also had some fever at home. He was coughing up some colored mucus. His oxygen saturation was ranging from 73% to 76% on 5 L nasal cannula oxygen. EMS was called and patient was brought into emergency room for further evaluation and management. After he was evaluated in the ER, he was admitted to intensive care unit. The patient had pneumonia and pleural effusion in the right lung. Initially, he was on BiPAP. Day after admission to the hospital, Dr. Oates from Pulmonary saw him for consultation , and at that time, he decided to intubate the patient and put him on ventilator for acute respiratory failure. Since that time, the patient has remained on ventilator. During this hospitalization, initially we started treating him upon admission with 2 broad-spectrum antibiotic, meropenem, and vancomycin. Few days after admission, the patient's blood culture and sputum culture all grew Haemophilus influenzae. According to sensitivity result, we change it to ceftriaxone. His white count when he came in was 5.6 and day after admission it was 13.6 and day after that it came down to 8.5. Almost a week ago or about 5, 6 days ago over past weekend, the patient had episodes of cardiac arrest 2 different times. He had first time about 30-second episode of asystole and he recovered just with CPR alone and second time same night he had another episode of asystole lasted about 3-1/2 minutes and this time along with the CPR he also required epinephrine injection. The patient had intermittent atrial fibrillation during this hospitalization and Cardiology consultation was requested. Dr. Jarvis started him on sotalol 80 mg twice a day. His echocardiogram done during this hospitalization showed ejection fraction around 48%. Chest x-ray did show improvement in pneumonia. On November 30, 2017, when he had these 2 episodes of cardiac arrest he had another set of blood culture done and that blood culture came back positive for gram-positive cocci and final report came back today showing skin contaminant. When he went into cardiac arrest on 11/30/2017, repeat CBC showed white count 31.7 and his potassium was elevated around 6.2. High potassium was treated with IV D50 and insulin injection, calcium gluconate, and Kayexalate. Potassium did come down to normal and in fact later on had some low potassium, which required some correction as well. When white count went up to 31.7, his antibiotics were changed to vancomycin and Zosyn. The patient responded well to this antibiotic treatment and last white count today is 14.8. The patient had another episode of asystole and this was about a couple of days prior to the discharge and this time it was 7-second episode and did not require any intervention at all and he actually recovered from it and went into atrial fibrillation after that. Dr. Jarvis from Cardiology contacted me and informed me that the patient should be evaluated for consideration of pacemaker placement, so what it looks like he has sick sinus syndrome. I talked to Dr. Oates from Pulmonary as well and all of us are in agreement to go ahead and initiate the transfer to [place] for higher level of care and transfer request was initiated. [facility] did not have any beds available and we did talk to [facility], who actually physician at [facility] accepted, but we received administered denial from [facility]. So, we had the patient on waiting list at [facility] as well as [facility] and finally today [facility] have bed available for him and the patient was transferred via ground ambulance in stable condition. All the details were discussed with the patient' s . The patient also had acute kidney injury during this hospitalization. His initial creatinine was 2.2 on admission. On 11/25/2017, his creatinine was 3.04 and that was the highest creatinine. Last creatinine today on day of discharge was 1.76. His lowest creatinine was 1.43 on 11/29/2017. His initial white count 5.6 when he came in, highest white count 31.7 on 11/30/2017, last white count today of 14.8. Last hemoglobin today 9.5 and initial hemoglobin was 11.5. The patient has not required any blood transfusion during this hospitalization. His 9.5 hemoglobin is the lowest hemoglobin for this admission. His procalcitonin was 6.1 2 on 11/24/2017, with lactic acid level of 41.5. His sodium level went up. Highest sodium level on 12/02/2017, was 159 with potassium 3.2. We started him on IV fluid D5W and free water through nasogastric tube. His sodium level started coming down. Last sodium level today is 151. The patient has received tube feeding and he has tolerated that well. Code status was discussed with the patient and patient's upon admission, and according to patient's , he is a full code, and I also discussed the code status with 1 more time today. Today, we initiated the transfer process. The patient had a negative venous Doppler of lower extremity , as well as negative venous Doppler of both upper extremities, and the patient has received Lovenox throughout this hospitalization. Final Diagnoses: 1. Septic shock, organism Haemophilus influenzae. 2. Pneumonia, organism Haemophilus influenzae. 3. Acute respiratory failure. 4. Acute exacerbation of chronic obstructive pulmonary disease. 5. Cardiac arrest. 6. Paroxysmal atrial fibrillation. 7. Acute kidney injury. 8. Volume depletion. 9. Hyperkalemia. 10. Hypokalemia. 11. Anemia. 12. Lung cancer. 13. Abdominal aortic aneurysm. 14. Hypertension. 15. Mixed hyperlipidemia. 16. Diverticulosis. 17. Coronary artery disease. 18. Gastroesophageal reflux disease. LORI/MODL Voice ID: [id number] Report ID: [id number] MICKY
== END 2017-12-04 22:05 | disposition short-term general hospital (02) | DRG 870 ==
LOC: ER 12:19 → ERHOLD 16:53 → 3RD-ICU 18:26
PROVIDERS: ADMIT Internal Medicine; ATTEND Internal Medicine
PROC: 5A09357 Assistance with Respiratory Ventilation, Less than 24 Consecutive Hours, Continuous Positive Airway Pressure (ICD-10-PCS; 2017-11-24)
PROC: 0BH17EZ Insertion of Endotracheal Airway into Trachea, Via Natural or Artificial Opening (ICD-10-PCS; 2017-11-25)
PROC: 02HV33Z Insertion of Infusion Device into Superior Vena Cava, Percutaneous Approach (ICD-10-PCS; 2017-11-28)
PROC: 5A1955Z Respiratory Ventilation, Greater than 96 Consecutive Hours (ICD-10-PCS; principal; 2017-11-29)
DX: A41.3 Sepsis due to Hemophilus influenzae (principal); J18.9 Pneumonia, unspecified organism; J96.00 Acute respiratory failure, unspecified whether with hypoxia or hypercapnia; R65.21 Severe sepsis with septic shock; I46.9 Cardiac arrest, cause unspecified; C34.90 Malignant neoplasm of unspecified part of unspecified bronchus or lung; N17.9 Acute kidney failure, unspecified; J44.1 Chronic obstructive pulmonary disease with (acute) exacerbation; E87.5 Hyperkalemia; E86.9 Volume depletion, unspecified; D64.9 Anemia, unspecified; I10 Essential (primary) hypertension; E78.2 Mixed hyperlipidemia; K57.90 Diverticulosis of intestine, part unspecified, without perforation or abscess without bleeding; I25.10 Atherosclerotic heart disease of native coronary artery without angina pectoris; K21.9 Gastro-esophageal reflux disease without esophagitis; I48.0 Paroxysmal atrial fibrillation
CPT/HCPCS: 36415; 71045; 71250; 74018; 76604; 80048; 80053; 80202; 82805; 82962; 83605; 83735; 83880; 84132; 84145; 84484; 85025; 85027; 85610; 85730; 87040; 87070; 87184; 87205; 93005; 93306; 93970; 93971; 94002; 94003; 94640; 94660; 94760; 99285; J0330; J0610; J0696; J1650; J1720; J2250; J2920; J2930; J3010; J3370; J3411; J3475; J7030; J7060; J7605